=== PATIENT | male | born 1940 | race Caucasian/White ===

== ENCOUNTER 2021-06-15 14:48 | Emergency (ER) | payer MEDICARE, SELFPAY ==
--- NOTE | ~2021-06-15 | CT_ITS ---
EXAMINATION: CT brain wo con DATE: 06/15/2021 15:28 INDICATION: Headache. TECHNIQUE: Computed tomography (CT) of the head was performed without intravenous contrast. The mA wa s adjusted according to patient size. Iterative reconstruction technique was employed. The dose-lengt h product was 605.33 mGy-cm. COMPARISON: None FINDINGS: There is an old lacunar infarct in left caudate nucleus. There is an old infarct in left pa rietal lobe. There are scattered areas of low attenuation in the cerebral white matter, which is with in normal limits for the patient's age. There is no intracranial hemorrhage, acute infarction, or abn ormal intracranial mass lesion. The ventricles are normal in size. There are likely changes of ocular lens replacement surgeries. There is mild mucosal thickening in the paranasal sinuses. The mastoid a ir cells are normal. IMPRESSION: 1. 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 Reviewed, dictated and finalized at location A.
--- NOTE | ~2021-06-15 | XR_ITS ---
EXAMINATION: XR chest 2V DATE: 06/15/2021 15:15 INDICATION: Hypertension TECHNIQUE: PA and lateral views of the chest were obtained. COMPARISON: None FINDINGS: Mild patchy airspace opacities in the bilateral lower lung zones. A couple small calcified nodules in the mid right lung zone consistent with old granulomatous disease. No pleural effusion or pneumothor ax. The cardiomediastinal silhouette is normal. Median sternotomy wires and mediastinal surgical clip s are seen, likely from prior coronary artery bypass grafting. Cholecystectomy clips in right upper q uadrant. Moderate cervical and midthoracic spondylosis. IMPRESSION: 1. Mild opacities in bilateral lower lung zones which could represent mild pulmonary edema, atelectas is or pneumonia. Reviewed, dictated and finalized at location A. IMPRESSION: 1. Mild opacities in bilateral lower lung zones which could represent mild pulm onary edema, atelectasis or pneumonia.
--- NOTE | 2021-06-15 14:55 | ECG_ITS ---
Measurements Intervals [place] Rate: 74 P: 10 WA: 173 QRS: 61 QRSD: 123 T: 7 QT: 391 QTc: 436 Interpretive Statements SINUS RHYTHM WITH SINUS ARRHYTHMIA RIGHT BUNDLE BRANCH BLOCK MINIMAL Q WAVES- INFERIOR LEADS ABNORMAL ECG Electronically Signed On 06-15-2021 15:16:46 CDT by Varun Klein D.O.
[2021-06-15 14:56] VITALS: BP 154/82; PULSE 100; RESP 16; TEMP 36; O2SAT 98
[2021-06-15 15:12] LABS: Basophils Absolute Auto 0.1 K/mm3 (0.0-0.1); Basophils Percent Auto 0.7 % (0.2-1.2); Eosinophils Absolute Auto 0.2 K/mm3 (0-0.3); Eosinophils Percent Auto 1.6 % (0-4.4); Hematocrit 40.1 % (42.0-52.0); Hemoglobin 13.1 g/dL (14.0-18.0); Immature Granulocyte Absolute 0.05 K/mm3 (0.00-0.031); Immature Granulocyte Percent A 0.5 % (0-0.5); Lymphocytes Absolute Auto 3.65 K/mm3 (0.9-3.2); Lymphocytes Percent Auto 34.8 % (18.3-44.2); Mean Corpuscular HGB Conc 32.7 g/dl (32-36); Mean Corpuscular Hemoglobin 30.6 pg (26-34); Mean Corpuscular Volume 93.7 fl (80-100); Mean Platelet Volume 9.6 fl (7.4-10.4); Monocytes Absolute Auto 1.1 K/mm3 (0.1-0.6); Monocytes Percent Auto 10.6 % (2.6-8.5); Neutrophils Absolute Auto 5.4 K/mm3 (1.3-6.7); Neutrophils Percent Auto 51.8 % (45.5-73.1); Platelet Count Result 253 k/mm3 (150-375); Red Blood Count 4.28 M/mm3 (4.6-6.20); Red Cell Distribution Width 12.7 % (11.5-14.5); White Blood Count 10.5 K/mm3 (4.5-10.0)
[2021-06-15 15:22] LABS: INR 0.9; Prothrombin Time 12.3 Seconds (11.1-14.7)
[2021-06-15 15:23] LABS: Partial Thromboplastin Time 29.2 SECONDS (22.3-36.8)
[2021-06-15 15:24] LABS: Anion Gap 9 mmol/L (8-16); Blood Urea Nitrogen 26 mg/dL (9-20); Calcium 9.6 mg/dL (8.4-10.2); Carbon Dioxide 22 mmol/L (22-30); Chloride 106 mmol/L (98-107); Estimated CRCL calculation 43 ml/min; Estimated Glomerular Filt Rate 42; Glucose 240 mg/dL (65-110); Potassium 4.8 mmol/L (3.4-5.0); Sodium 137 mmol/L (137-145)
[2021-06-15 15:36] LABS: Troponin I < 0.012 ng/mL (0.000-0.034)
--- NOTE | 2021-06-15 16:29 | PC.NURSE ---
pt had this rn contact his at [phone] to have her come pick him up because he is tired of waiting. pt spoke with and decided to leave without having md evaluation.
== END 2021-06-15 16:29 | disposition left against medical advice (07) ==
PROVIDERS: Emergency Provider Emergency Medicine
DX: Z53.21 Procedure and treatment not carried out due to patient leaving prior to being seen by health care provider (principal)
CPT/HCPCS: 36415; 70450; 71046; 80048; 84484; 85025; 85610; 85730; 93005; 99199

== ENCOUNTER 2021-12-15 09:06 | Outpatient (CLI) | payer MEDICARE, SELFPAY ==
--- NOTE | 2021-12-15 09:20 | ECG_ITS ---
Measurements Intervals [place] Rate: 103 P: -12 MT: 148 QRS: 68 QRSD: 130 T: -5 QT: 364 QTc: 477 Interpretive Statements SINUS TACHYCARDIA POSSIBLE LEFT ATRIAL ENLARGEMENT RIGHT BUNDLE BRANCH BLOCK BASELINE ARTIFACT- V3 ABNORMAL ECG Electronically Signed On 12-15-2021 10:03:43 TONG CARRIER by Varun Klein D.O.
== END 2021-12-15 09:07 | disposition home or self-care (01) ==
PROVIDERS: PCP Internal Medicine; Visit Provider Internal Medicine
DX: R00.0 Tachycardia, unspecified (principal); I10 Essential (primary) hypertension; I45.10 Unspecified right bundle-branch block
CPT/HCPCS: 93005

== ENCOUNTER 2022-01-07 13:26 | Outpatient (CLI) | payer MEDICARE, SELFPAY ==
--- NOTE | 2022-01-07 13:39 | ECHO_ITS ---
Patient Info Name: Alec Funes Age: 81 years : 1940 Gender: Male Ht: 72 in Wt: 238 lbs BSA: 2.37 m2 HR: 110 bpm BP: 125 / 62 mmHg Heart Rhythm: Sinus Rhythm Technical Quality: Poor Exam Date: 01/07/2022 1:50 PM Exam Location: [facility] Patient Status: Outpatient Admit Date: 01/07/2022 Staff Ordering Physician: Doug Chappell MD Purchase Order Checker: Jackie Fletcher RDCS Attending Provider: Doug Chappell MD Exam Type: CA echo doppler color flow Study Info Indications I25.10 - Atherosclerotic heart disease of [place] coronary artery without angina pectoris Complete two-dimensional, color flow and Doppler transthoracic echocardiogram is performed. Reason for Poor Study: patient body habitus Summary 1. Complete two-dimensional, color flow and Doppler transthoracic echocardiogram is performed. 2. There is moderate concentric increased left ventricular wall thickness. 3. Left ventricular systolic function is normal, estimated at 50-55%. 4. There is mild aortic valve stenosis with a peak velocity of 162 cm/s, mean gradient of 6 mmHg, and aortic valve area of 1.5 cm2. 5. The mitral valve has thickened leaflets. 6. There is no mitral valve regurgitation. Left Ventricle Left ventricular chamber dimension is normal. Left ventricular systolic function is normal, estimated at 50-55%. There is moderate concentric increased left ventricular wall thickness. The left ventricular diastolic function is grade I diastolic dysfunction. Right Ventricle Right ventricular chamber dimension is normal. Left Atria Left atrial chamber dimension is moderately enlarged. Right Atria Right atrial chamber dimension is normal. Aortic Valve The aortic valve is trileaflet. There is moderate aortic valve sclerosis. There is mild aortic valve stenosis with a peak velocity of 162 cm/s, mean gradient of 6 mmHg, and aortic valve area of 1.5 cm2. Pulmonic Valve The pulmonic valve is not well visualized. Mitral Valve The mitral valve has thickened leaflets. There is no mitral valve regurgitation. The mitral valve annulus is mildly calcified. Tricuspid Valve The tricuspid valve leaflets are normal. Pericardium/Pleural The pericardium appears normal. Aorta The aortic root size at the sinus of Valsalva is normal. Left Ventricular Outflow Tract Name Value Normal LVOT 2D LVOT Diameter 2.0 cm LVOT Doppler LVOT Peak Gradient 2 mmHg LVOT Mean Gradient 1 mmHg LVOT VTI 11 cm LVOT VTI/AV VTI Ratio 0.4 LVOT Stroke Volume 37 ml LVOT CO 3.3 l/min LVOT CI 1.4 l/min/m2 Pulmonic Valve Name Value Normal RVOT Doppler RVOT Peak Gradient 1 mmHg
== END 2022-01-07 13:27 | disposition home or self-care (01) ==
LOC: ANHCARD 13:31
PROVIDERS: PCP Internal Medicine; Visit Provider Internal Medicine
DX: I25.10 Atherosclerotic heart disease of native coronary artery without angina pectoris (principal); R00.0 Tachycardia, unspecified; I50.20 Unspecified systolic (congestive) heart failure; I35.0 Nonrheumatic aortic (valve) stenosis
CPT/HCPCS: 93306

== ENCOUNTER 2023-02-21 10:40 | Outpatient (CLI) | payer MEDICARE, SELFPAY ==
--- NOTE | ~2023-02-21 | US_ITS ---
EXAMINATION: US carotid duplex BI DATE: 02/21/2023 11:44 INDICATION: Bilateral carotid artery stenosis presenting with dizziness. Cerebral atherosclerosis. TECHNIQUE: Grayscale, color Doppler, and pulsed Doppler images of the cervical carotid arteries were obtained. The degree of vessel stenosis is placed in one of the following categories: normal, <50%, 5 0-69%, >=70% but less than near-occlusion, near-occlusion, or total occlusion. Note that percent sten osis relative to normal distal artery lumen diameter is indirectly measured from velocity measurement s as described by Ajni, et al. Radiology 2003; 229:340-346. COMPARISON: None. FINDINGS: RIGHT: The right common carotid artery (CCA) peak systolic velocity (PSV) is 80 cm/s. The right internal car otid artery (ICA) PSV is 153 cm/s. The right ICA end-diastolic velocity (EDV) is 31 cm/s. The right I CA/CCA PSV ratio is 1.9. Grayscale and color Doppler images yield an estimate of 50-69% diameter redu ction from plaque in the ICA. The external carotid artery (ECA) PSV is 94 cm/s. There is antegrade fl ow in the right vertebral artery. LEFT: The left CCA PSV is 102 cm/s. The left ICA PSV is 111 cm/s. The left ICA EDV is 31 cm/s. The left ICA /CCA PSV ratio is 1.1. Grayscale and color Doppler images yield an estimate of <50% diameter reductio n from plaque in the ICA. The ECA PSV is 197 cm/s. There is antegrade flow in the left vertebral nicholas ry. IMPRESSION: 1. 50-69% stenosis in the right internal carotid artery. 2. <50% stenosis in the left internal carotid artery. Reviewed, dictated and finalized at location A.
== END 2023-02-21 10:41 | disposition home or self-care (01) ==
PROVIDERS: PCP Internal Medicine; Visit Provider Specialist
DX: I65.23 Occlusion and stenosis of bilateral carotid arteries (principal)
CPT/HCPCS: 93880

== ENCOUNTER 2023-06-27 08:04 | Outpatient (CLI) | payer MEDICARE, SELFPAY ==
--- NOTE | 2023-07-17 10:31 | WPDSLEEPSTUD ---
Sleep Study Date of Study: 06/27/23 Ordering Provider: Leonid Laurent APRN Interpreting Physician: Norma Hernandez DO Sleep Study Type: Split Polysomnogram Height: 1.8 m Weight: 101.605 kg Body Mass Index: 31.2 Neck Circumference (inches): 17.5 [place]: 7 Reason for Sleep Study Previously diagnosed sleep apnea with PAP use. BiPAP Titration 02/14/18 @ [facility], [place] - auto BiPAP IPAP max 20, min EPAP 15, PS 4 recommended. 256lbs. Sleep History The patient is an 83-year-old male with diabetes, chronic kidney disease, hypothyroidism, dementia, hypertension, restless legs syndrome, benign prostatic hyperplasia, hyperlipidemia, congestive heart failure, coronary artery disease, migraines and previously diagnosed sleep apnea had a sleep study ordered so the patient could requalify for PAP therapy. The patient denies awakening from sleep short of breath. He rarely awakens at night with heartburn, belching or. He frequently snores and is frequently loud enough others complain. He denies having trouble sleeping when he has a cold. He denies waking up gasping for air throughout the night. He occasionally has breathing problems at night observed by himself or others. He rarely sweats excessively at night. He occasionally has heart palpitations or irregular heartbeats during the night. He frequently falls asleep during the day but never while driving. He denies sleep paralysis and cataplexy. He rarely has trouble at school or work due to sleepiness. He frequently experiences vivid dreamlike scenes upon awakening or falling asleep. He denies feeling afraid of going to sleep. He rarely has nightmares. He occasionally remembers his dreams. He rarely has thoughts racing through his mind. He denies feeling sad, depressed or anxious. He rarely has muscular tension. He occasionally notices parts of his body jerk. He occasionally kicks during the night. He frequently has crawling and aching feelings in his legs but rarely experiences leg pain throughout the night. He denies grinding his teeth during sleep and denies awakening with morning jaw pain. He is occasionally bothered by pain during the day but never awakened by pain during the night. He frequently wakes up feeling stiff in the morning. He frequently wakes up with sore or achy muscles. He constantly wakes up with pain in the neck, spine and other joints. He goes to bed between 8-9 p.m. on both weekdays and weekends. It takes him 5 minutes to fall asleep. He wakes up 2-5 times throughout the night to urinate and is able to fall back asleep within 5 minutes. He wakes up between 5-6:30 a.m. on both weekdays and weekends. He typically gets 9-10 hours of sleep per night. He will stay in bed for 5-10 minutes after waking up in the morning. He currently lives with his , daughter and son-in-law. He denies consuming any caffeinated beverages within 2 hours of bedtime. He denies engaging in physical exercise before bedtime. He will watch television before falling asleep. He will take naps in the afternoon and are refreshing. He currently consumes 1 cup of caffeinated beverage per day. He used to use tobacco be a pipe 30 years ago. He denies alcohol and recreational drug use. [facility] Past Medical History Medical History Allergies Diabetes Dizziness Excessive daytime sleepiness Heart attack Heart problem High cholesterol Memory loss Pulmonary embolism Thyroid disorder Vision changes Weakness Surgical History Surgical History H/O heart bypass surgery History of left knee replacement Previous back surgery Family History Family History Father Carcinoma of colon Mother Leukemia Sibling Diabetes mellitus Kidney disease Heart disease Daughter
[2023-07-17 10:32] VITALS: BMI 31.2
== END 2023-06-28 06:14 | disposition home or self-care (01) ==
PROVIDERS: PCP Family Medicine; Visit Provider Nurse Practitioner Family
DX: G47.30 Sleep apnea, unspecified (principal); G47.33 Obstructive sleep apnea (adult) (pediatric); G25.81 Restless legs syndrome
CPT/HCPCS: 95811

== ENCOUNTER 2023-07-18 10:35 | Outpatient (CLI) | payer MEDICARE, SELFPAY ==
[2023-07-24 19:10] LABS: Cryoglobulin, QL Negative (Negative)
== END 2023-07-18 10:36 | disposition home or self-care (01) ==
LOC: ANHLAB 10:36
PROVIDERS: PCP Family Medicine; Visit Provider Internal Medicine Nephrology
DX: N18.32 Chronic kidney disease, stage 3b (principal); R76.0 Raised antibody titer
CPT/HCPCS: 36415; 82595

== ENCOUNTER 2023-12-07 14:18 | Outpatient (CLI) | payer MEDICARE, SELFPAY ==
[2023-12-07 15:04] LABS: Basophils Absolute Auto 0.1 K/mm3 (0.0-0.1); Basophils Percent Auto 0.8 % (0.2-1.2); Eosinophils Absolute Auto 0.2 K/mm3 (0-0.3); Eosinophils Percent Auto 1.5 % (0-4.4); Hematocrit 45.1 % (42.0-52.0); Hemoglobin 14.8 g/dL (14.0-18.0); Immature Granulocyte Absolute 0.05 K/mm3 (0.00-0.031); Immature Granulocyte Percent A 0.5 % (0-0.5); Lymphocytes Percent Auto 31.6 % (18.3-44.2); Mean Corpuscular HGB Conc 32.8 g/dl (32-36); Mean Corpuscular Hemoglobin 30.6 pg (26-34); Mean Corpuscular Volume 93.4 fl (80-100); Mean Platelet Volume 9.6 fl (7.4-10.4); Monocytes Absolute Auto 1.1 K/mm3 (0.1-0.6); Monocytes Percent Auto 10.9 % (2.6-8.5); Neutrophils Absolute Auto 5.6 K/mm3 (1.3-6.7); Neutrophils Percent Auto 54.7 % (45.5-73.1); Platelet Count Result 218 k/mm3 (150-375); Red Blood Count 4.83 M/mm3 (4.6-6.20); Red Cell Distribution Width 12.2 % (11.5-14.5); White Blood Count 10.1 K/mm3 (4.5-10.0)
[2023-12-07 15:08] LABS: Alanine Aminotransferase 30 U/L (6-50); Alkaline Phosphatase 132 U/L (38-126); Anion Gap 11 mmol/L (8-16); Aspartate Amino Transferase 42 U/L (17-59); Bilirubin,Total 0.7 mg/dL (0.2-1.3); Blood Urea Nitrogen 17 mg/dL (9-20); Calcium 9.6 mg/dL (8.4-10.2); Carbon Dioxide 23 mmol/L (22-30); Chloride 104 mmol/L (98-107); Cholesterol 163 mg/dL (0-200); Estimated Glomerular Filt Rate 58; Glucose 145 mg/dL (65-110); HDL Direct 40 mg/dL; Potassium 3.6 mmol/L (3.4-5.0); Sodium 138 mmol/L (137-145); Triglycerides 145 mg/dL (<150)
[2023-12-07 15:19] LABS: LDL Cholesterol Direct 91 mg/dL
[2023-12-07 18:08] LABS: Vitamin D 25 Hydroxy 51.6 ng/mL
== END 2023-12-07 14:19 | disposition home or self-care (01) ==
PROVIDERS: PCP Family Medicine; Visit Provider Nurse Practitioner Family
DX: E03.9 Hypothyroidism, unspecified (principal); E11.9 Type 2 diabetes mellitus without complications; E55.9 Vitamin D deficiency, unspecified; E66.9 Obesity, unspecified; E78.5 Hyperlipidemia, unspecified; F03.90 Unspecified dementia, unspecified severity, without behavioral disturbance, psychotic disturbance, mood disturbance, and anxiety; G43.709 Chronic migraine without aura, not intractable, without status migrainosus; G47.33 Obstructive sleep apnea (adult) (pediatric); I25.10 Atherosclerotic heart disease of native coronary artery without angina pectoris; I49.8 Other specified cardiac arrhythmias; I50.20 Unspecified systolic (congestive) heart failure; N18.9 Chronic kidney disease, unspecified; N40.0 Benign prostatic hyperplasia without lower urinary tract symptoms; R42 Dizziness and giddiness; Z86.73 Personal history of transient ischemic attack (TIA), and cerebral infarction without residual deficits
CPT/HCPCS: 36415; 80053; 80061; 82306; 84443; 85025

== ENCOUNTER 2024-01-02 07:34 | Outpatient (CLI) | payer MEDICARE, SELFPAY ==
[2024-01-02 07:59] LABS: Hematocrit 45.5 % (42.0-52.0); Hemoglobin 14.7 g/dL (14.0-18.0); Mean Corpuscular HGB Conc 32.3 g/dl (32-36); Mean Corpuscular Hemoglobin 30.6 pg (26-34); Mean Corpuscular Volume 94.8 fl (80-100); Mean Platelet Volume 9.2 fl (7.4-10.4); Platelet Count Result 227 k/mm3 (150-375); Red Cell Distribution Width 12.2 % (11.5-14.5); White Blood Count 9.7 K/mm3 (4.5-10.0)
[2024-01-02 08:09] LABS: Creatinine Urine 89.5 mg/dL; Total Protein Urine Random 14 mg/dL; Ur Ttl Prot Creatinine Ratio 0.16 mg/mg (0-0.20)
[2024-01-02 08:10] LABS: Anion Gap 7 mmol/L (8-16); Blood Urea Nitrogen 16 mg/dL (9-20); Calcium 9.1 mg/dL (8.4-10.2); Carbon Dioxide 23 mmol/L (22-30); Chloride 107 mmol/L (98-107); Estimated Glomerular Filt Rate > 60; Glucose 95 mg/dL (65-110); Phosphorus 3.3 mg/dL (2.5-4.5); Potassium 3.7 mmol/L (3.4-5.0); Sodium 137 mmol/L (137-145)
[2024-01-02 08:22] LABS: Parathyroid Intact 75.9 pg/mL (7.5-53.5)
== END 2024-01-02 07:35 | disposition home or self-care (01) ==
LOC: ANHLAB 07:37
PROVIDERS: PCP Family Medicine; Visit Provider Internal Medicine Nephrology
DX: N18.32 Chronic kidney disease, stage 3b (principal)
CPT/HCPCS: 36415; 80069; 82570; 83970; 84156; 85027

== ENCOUNTER 2024-05-06 00:30 | Day surgery (SDC) | payer MEDICARE, SELFPAY ==
[2024-05-03 16:22] VITALS: BMI 29.5
[2024-05-06] VITALS (21 sets, daily range): BP systolic 111–163; BP diastolic 58–83; PULSE 60–84; RESP 12–16; TEMP 36.1; O2SAT 94–100; BMI 29.0
[2024-05-06 07:30] LABS: Basophils Absolute Auto 0.1 K/mm3 (0.0-0.1); Basophils Percent Auto 0.9 % (0.2-1.2); Eosinophils Absolute Auto 0.2 K/mm3 (0-0.3); Eosinophils Percent Auto 1.9 % (0-4.4); Hematocrit 45.4 % (42.0-52.0); Hemoglobin 15.5 g/dL (14.0-18.0); Immature Granulocyte Absolute 0.07 K/mm3 (0.00-0.031); Immature Granulocyte Percent A 0.7 % (0-0.5); Lymphocytes Absolute Auto 2.82 K/mm3 (0.9-3.2); Lymphocytes Percent Auto 27.5 % (18.3-44.2); Mean Corpuscular HGB Conc 34.1 g/dl (32-36); Mean Corpuscular Hemoglobin 31.6 pg (26-34); Mean Corpuscular Volume 92.5 fl (80-100); Monocytes Percent Auto 9.9 % (2.6-8.5); Neutrophils Absolute Auto 6.1 K/mm3 (1.3-6.7); Neutrophils Percent Auto 59.1 % (45.5-73.1); Platelet Count Result 268 k/mm3 (150-375); Red Blood Count 4.91 M/mm3 (4.6-6.20); Red Cell Distribution Width 12.3 % (11.5-14.5); White Blood Count 10.3 K/mm3 (4.5-10.0)
[2024-05-06 07:40] LABS: Prothrombin Time 13.5 Seconds (11.1-14.7)
[2024-05-06 08:02] LABS: Anion Gap 7 mmol/L (4-12); Blood Urea Nitrogen 17 mg/dL (9-20); Calcium 9.1 mg/dL (8.4-10.2); Carbon Dioxide 26 mmol/L (22-30); Chloride 106 mmol/L (98-107); Estimated CRCL calculation 45 ml/min; Estimated Glomerular Filt Rate 58; Glucose 183 mg/dL (65-110); Potassium 3.9 mmol/L (3.4-5.0); Sodium 139 mmol/L (137-145)
[2024-05-06] MEDS: SODIUM CHLORIDE 0.9% IV 500 ML 100 ML IV CONT (08:25)
--- NOTE | 2024-05-06 08:33 | PM.IMHP ---
H&P: HPI History of Present Illness Date/Time: 05/06/24 08:33 Chief Complaint: Chest pain Narrative: this is an 83-year-old man with known coronary disease and previous surgical revascularization was admitted today as an outpatient for left heart catheterization to investigate symptoms of chest pain. I saw the patient in the office for routine follow-up in the end of March of 2024 which time he was reporting symptoms of exertional chest burning that were slowly getting worse over the course of the last 6 months to year. He did have symptoms like this last year that were evaluated with a nuclear stress test that was largely unremarkable. He also has a history of mild aortic valve stenosis. Because of his ongoing symptoms left heart catheterization was discussed and recommended at that time. The patient this morning appears to be a very poor historian in terms of describing symptoms. He states that between his appointment in the office and today he had a significant episode of symptoms with some chest pain dyspnea and significant weakness that went on for about 24-36 hours. For some reason he did not choose to come in for medical evaluation at that time. He also reports ongoing symptoms of some back pain when he rolls in certain positions in his bed. At the moment he is not reporting chest pain with exertion. His history of coronary disease dates back to the . In 1995 he presented with chest pain and was evaluated at [facility]. He underwent surgical revascularization receiving an SANDIE graft to the LAD and a diagonal and a radial artery graft to a 2nd diagonal and then to the obtuse marginal. He did very well following surgery he was living in [place] for a long time after this and recently within the last several years relocated back to this area. Review of Systems Constitutional: Constitutional: Reports lethargy and Reports weakness Eyes: Eyes: Reports no additional eye complaints ENT: Reports system reviewed and no additional complaints, except as documented Cardiovascular: Cardiovascular: Reports as per HPI Respiratory: Respiratory: Reports dyspnea on exertion Gastrointestinal: Gastrointestinal: Reports no additional gastrointestinal complaints Genitourinary: Genitourinary: Reports no additional male genitourinary complaints Musculoskeletal: Musculoskeletal: Reports back pain Integumentary/Breasts: Skin/Breast: Reports system reviewed and no additional complaints, except as docu Neurologic: Reports system reviewed and no additional complaints, except as documented [facility] Past Medical History Medical History Allergies Diabetes Dizziness Excessive daytime sleepiness Heart attack Heart problem High cholesterol Memory loss Pulmonary embolism Thyroid disorder Vision changes Weakness Surgical History Surgical History H/O heart bypass surgery History of left knee replacement Previous back surgery Family History Family History Father Carcinoma of colon Mother Leukemia Sibling Diabetes mellitus Kidney disease Heart disease Daughter Diabetes mellitus Son Cerebrovascular accident Social History Social History Smoking status: Never smoker Tobacco type: pipe Smokeless tobacco user: chewing tobacco Second hand tobacco smoke exposure: Yes Alcohol intake: never Alcohol use details: social Substance use: never Substance use type: does not use Do You Feel Safe in your Home?: Yes Lack of Transportation: No Lack of Food: Never True Current Housing: I Have Housing Concerned About Future Housing: No Difficulty Paying Gas/Electric Bills: No Difficulty Paying for Meds: No Currently Unemployed: No Education: Hig
--- NOTE | 2024-05-06 08:40 | WPDMODSED ---
Moderate Sedation Note-Pt Data Patient Data Diagnosis: coronary disease with previous surgical revascularization MARTIN atypical chest pain Present Complaint: intermittent chest pain Procedure to be performed/Plan: left heart catheterization with bypass graft angiography Allergies Allergy/AdvReac Type Severity Reaction Status Date / Time meperidine [From Demerol] AdvReac Unknown Unknown Verified 05/06/24 07:23 Home Medications Medication Instructions Recorded Confirmed Type multivitamin (Daily Multi-Vitamin 1 tablet PO DAILY 07/05/21 05/03/24 History tablet) flash glucose sensor (FreeStyle #1 ea 07/22/21 01/13/24 Rx Kian 14 Day Sensor kit) flash glucose sensor (FreeStyle #1 ea 09/14/21 01/13/24 Rx Kian 2 Sensor kit) aspirin 81 mg chewable tablet 81 mg PO DAILY 12/15/21 05/06/24 History semaglutide 1 mg/dose (2 mg/1.5 1 mg subcut WEEKLY 12/15/21 05/03/24 History mL) subcutaneous pen injector levothyroxine 50 mcg tablet 50 mcg PO DAILY #90 tabs 07/04/22 05/06/24 Rx midodrine 5 mg tablet 5 mg PO TID 90 days #270 tabs 07/05/22 05/03/24 Rx dapagliflozin propanediol 5 mg 5 mg PO DAILY 01/09/23 05/03/24 History tablet (Farxiga) insulin aspart U-100 100 unit/mL 10 sliding scale dose subcut BID 01/09/23 05/03/24 History (3 mL) subcutaneous pen (Novolog FlexPen U-100 Insulin aspart) fludrocortisone 0.1 mg tablet 0.1 mg PO DAILY 05/08/23 05/03/24 History clopidogrel 75 mg tablet 75 mg PO DAILY 05/03/24 05/06/24 History insulin glargine 100 unit/mL 20 unit subcut BID 05/03/24 05/03/24 History subcutaneous cartridge Current Medications: Active Medications Sodium Chloride (Normal Saline Iv) 500 mls @ 100 mls/hr IV CONT .Q5H SARAH Sedation/Anesthesia: No previous sedation/anesthesia problems (including family history). [facility] Past Medical History Medical History Allergies Diabetes Dizziness Excessive daytime sleepiness Heart attack Heart problem High cholesterol Memory loss Pulmonary embolism Thyroid disorder Vision changes Weakness Surgical History Surgical History H/O heart bypass surgery History of left knee replacement Previous back surgery Family History Family History Father Carcinoma of colon Mother Leukemia Sibling Diabetes mellitus Kidney disease Heart disease Daughter Diabetes mellitus Son Cerebrovascular accident Social History Social History Smoking status: Never smoker Tobacco type: pipe Smokeless tobacco user: chewing tobacco Second hand tobacco smoke exposure: Yes Alcohol intake: never Alcohol use details: social Substance use: never Substance use type: does not use Do You Feel Safe in your Home?: Yes Lack of Transportation: No Lack of Food: Never True Current Housing: I Have Housing Concerned About Future Housing: No Difficulty Paying Gas/Electric Bills: No Difficulty Paying for Meds: No Currently Unemployed: No Education: High School Diploma/GED Living arrangements: with family Occupation/Education: retired Gender identity (if verbalized by the patient): Male Sexual Orientation (if Verbalized by the Patient): Straight or Heterosexual Spiritual care concerns: No Mod Sed Physical Exam Physical Exam Pre Procedural Exam: Normal: Throat, Airway, Lungs, Heart Size, Heart Rate, Heart Rhythm, Neuro Exam and Extremities and Variation: Appearance ( elderly gentleman no distress) Hours since solid foods: 12 Hours since liquid intake: 12 Mallampati Classification: class II Internal Medicine - PN: Obj Da Vital Signs Vital Signs: Vital Signs - 24 hr 05/06/24 07:31 Temperature 36.1 C L Pulse Rate 72 Respiratory Rate 13 Blood Pressure 141/72 H Pulse
--- NOTE | 2024-05-06 09:37 | WPDCARDPROC ---
Cardiac Cath Procedure Note Date of procedure:: 05/06/24 Performing physician:: Remberto Mccray MD Indication:: intermittent atypical sounding chest pain coronary disease with previous surgical revascularization aortic stenosis, mild by echo Brief clinical history:: this is an 83-year-old man with coronary artery disease and surgical revascularization back in 1995. He received an SANDIE graft to the LAD and a radial artery graft to his OM. He presents now with episodes of chest pain both with and without exertion and MARTIN. For evaluation of the symptoms follow-up angiography has been scheduled for today. Procedure Procedure performed:: Coronary angiography non selective SANDIE graft angiography aortic root angiography Sedation/Medication given:: fentanyl 25 mg Versed 2 mg case start time 8:49 a.m. case end time 9:28 a.m. sedation provided by Paula Tomlin RN trained observer Access site:: right femoral artery Estimated blood loss:: 25 cc Procedure note:: patient was brought to the cardiac catheterization postabsorptive state where the right femoral triangle was prepared and draped in the usual fashion. Anesthesia was provided with 1% lidocaine infiltrated locally. Using the modified Seldinger technique the femoral artery was punctured and a 5 Cambodian vascular sheath was placed. After this I advanced a angled pigtail catheter into the aortic root and this catheter with the J wire would not successfully cross the aortic valve. As the patient had recent echocardiography I did not make further attempts to cross the patient's aortic valve. Following this a 5 Cambodian FL4 catheter was engaged into the left main coronary artery and left coronary angiography was performed in multiple projections. Following this a 5 Cambodian JR4 used to engage and inject right coronary artery as well as attempt to identify the radial artery graft. This catheter was also used to non selectively inject the GERMAN with the catheter in the left subclavian artery. I was unable despite several attempts to get this catheter or any catheter to the origin of the left internal mammary. The left subclavian artery is calcified but large in caliber. I tried the combinations of this catheter with J-wire, Buckley wire, the same wire with the SANDIE catheter and the same wires with the multipurpose catheter. Following this I placed the pigtail catheter back into the aortic root and performed a aortic root injection in the UZBEK projection to ensure there were no other aorta coronary grafts that were not visualized. The case was then terminated the patient was taken to the holding area for sheath removal and recovery. Findings:: Hemodynamics: Central aortic pressure is 158/70. The left ventricle was not entered during this procedure the left main coronary artery is calcified but patent without significant stenosis. The left anterior descending is a medium caliber artery which is calcified. It is 100% occluded after the origin of a small 1st diagonal branch. The vessel has the appearance of a chronic occlusion. The circumflex is a medium caliber artery giving rise to 3 marginal branches and a posterior branch. The circumflex is calcified and mildly diseased in the trunk. The 2nd and 3rd marginal branches have ostial lesions of about 80-90%. These are both small vessels. The right coronary artery is large caliber and dominant to the posterior circulation. The right coronary artery has complex eccentric calcified proximal stenosis. In the MATTHEWS projection this appears to be approximately 80% stenosis in the UZBEK projections it appears to be less significant. The left internal mammary was visualized as stated above non selectively with injection in the left subclavian. It is a large SANDIE which grafts into a small caliber somewhat diffusely diseased LAD. There are no lesions in the SANDIE. The LAD itself was suboptimally visualized because of the non selective na
== END 2024-05-06 16:25 | disposition home or self-care (01) ==
PROVIDERS: PCP Nurse Practitioner Family; Visit Provider Specialist
PROC: 4A023N7 Measurement of Cardiac Sampling and Pressure, Left Heart, Percutaneous Approach (ICD-10-PCS; CPT 93459; principal; 2024-05-06 08:30)
DX: I25.10 Atherosclerotic heart disease of native coronary artery without angina pectoris (principal); I25.810 Atherosclerosis of coronary artery bypass graft(s) without angina pectoris; R07.9 Chest pain, unspecified; I35.0 Nonrheumatic aortic (valve) stenosis; E78.00 Pure hypercholesterolemia, unspecified; I25.2 Old myocardial infarction; E11.9 Type 2 diabetes mellitus without complications; E07.9 Disorder of thyroid, unspecified; Z86.711 Personal history of pulmonary embolism; F17.220 Nicotine dependence, chewing tobacco, uncomplicated; Z79.82 Long term (current) use of aspirin; Z79.85 Long-term (current) use of injectable non-insulin antidiabetic drugs; Z79.84 Long term (current) use of oral hypoglycemic drugs; Z79.4 Long term (current) use of insulin; Z79.02 Long term (current) use of antithrombotics/antiplatelets
CPT/HCPCS: 36415; 80048; 85025; 85610; 93459; C1769; C1887; C1894; J0461; J1644; J2250; J2305; J3010; J7040

== ENCOUNTER 2024-07-15 08:45 | Outpatient (RCR) | payer MEDICARE, SELFPAY ==
[2024-07-02 15:45] VITALS: PULSE 84
[2024-07-03 09:57] LABS: Glucose Point of Care 129 mg/dl (65-105)
[2024-07-04 09:48] LABS: Glucose Point of Care 110 mg/dl (65-105)
[2024-07-04 09:48] LABS: Glucose Point of Care 93 mg/dl (65-105)
== END 2024-07-15 11:33 | disposition home or self-care (01) ==
LOC: ANHCPREHAB 08:45
PROVIDERS: PCP Nurse Practitioner Family; Visit Provider Specialist
DX: Z95.5 Presence of coronary angioplasty implant and graft (principal)
CPT/HCPCS: 93798

== ENCOUNTER 2024-07-26 11:59 | Outpatient (CLI) | payer MEDICARE, SELFPAY ==
[2024-07-26 12:33] LABS: Hematocrit 45.5 % (42.0-52.0); Hemoglobin 15.5 g/dL (14.0-18.0); Mean Corpuscular HGB Conc 34.1 g/dl (32-36); Mean Corpuscular Hemoglobin 31.8 pg (26-34); Mean Corpuscular Volume 93.4 fl (80-100); Mean Platelet Volume 9.8 fl (7.4-10.4); Platelet Count Result 227 k/mm3 (150-375); Red Blood Count 4.87 M/mm3 (4.6-6.20); Red Cell Distribution Width 12.1 % (11.5-14.5); White Blood Count 9.7 K/mm3 (4.5-10.0)
[2024-07-26 12:48] LABS: Albumin Level 4.2 g/dL (3.5-5.1); Anion Gap 8 mmol/L (4-12); Blood Urea Nitrogen 15 mg/dL (9-20); Calcium 9.2 mg/dL (8.4-10.2); Carbon Dioxide 28 mmol/L (22-30); Chloride 104 mmol/L (98-107); Estimated Glomerular Filt Rate 48; Glucose 127 mg/dL (65-110); Phosphorus 3.3 mg/dL (2.5-4.5); Sodium 140 mmol/L (137-145)
[2024-07-26 12:56] LABS: Parathyroid Intact 71.1 pg/mL (14.5-75.2)
[2024-07-26 13:09] LABS: Creatinine Urine 200.4 mg/dL; Total Protein Urine Random 17 mg/dL; Ur Ttl Prot Creatinine Ratio 0.08 mg/mg (0-0.20)
[2024-07-26 13:24] LABS: Vitamin D 25 Hydroxy 64.1 ng/mL
== END 2024-07-26 12:00 | disposition home or self-care (01) ==
LOC: ANHLAB 12:02
PROVIDERS: PCP Nurse Practitioner Family; Visit Provider Internal Medicine Nephrology
DX: E11.22 Type 2 diabetes mellitus with diabetic chronic kidney disease (principal); N18.32 Chronic kidney disease, stage 3b; R76.0 Raised antibody titer; E21.1 Secondary hyperparathyroidism, not elsewhere classified; Z79.4 Long term (current) use of insulin
CPT/HCPCS: 36415; 80069; 82306; 82570; 83970; 84156; 85027

== ENCOUNTER 2024-09-18 14:19 | Outpatient (CLI) | payer MEDICARE, SELFPAY ==
--- NOTE | ~2024-09-18 | XR_ITS ---
Lumbosacral Spine: AP and lateral views Clinical History: Pain Findings: The normal lordotic curve is maintained. The vertebral bodies and posterior elements are i ntact. There is moderate to advanced degenerative disc narrowing at L4-L5 and L5-S1. There is advance d facet arthropathy at L4-L5 and L5-S1. There is minimal degenerative change of the upper lumbar spin e. The sacroiliac joints are normally outlined. Impression: Moderate to advanced degenerative spondylosis, especially the lower lumbar spine, as detailed above. Reviewed, dictated and finalized at location M. MACHINE OPERATOR Impression: Moderate to advanced degenerative spondylosis, especially the lower lumbar spin e, as detailed above.
[2024-09-18 16:43] LABS: Creatinine Urine 88.6 mg/dL
[2024-09-18 16:47] LABS: MALB Creatinine Ratio 17.6 mg/g (0-30); Microalbumin Urine Random 15.6 mg/L (0-16.7)
== END 2024-09-18 14:20 | disposition home or self-care (01) ==
PROVIDERS: PCP Nurse Practitioner Family; Visit Provider Nurse Practitioner Family
DX: M47.896 Other spondylosis, lumbar region (principal); M47.897 Other spondylosis, lumbosacral region; E11.9 Type 2 diabetes mellitus without complications
CPT/HCPCS: 72100; 82043

== ENCOUNTER 2025-03-12 13:49 | Outpatient (CLI) | payer MEDICARE, SELFPAY ==
--- OUTSIDE RECORDS SUMMARY | 2025-03-12 14:00 | XMS_ITS | Clinical Summary ---
Author Organization [facility] Address [address] [place] [id number] Phone Care Team Providers Care Dredge Master Name Role Phone Doug Chappell MD Primary Care Provider [phone] Allergies Active Allergy Reactions Criticality Noted Date Comments Meperidine Other (see comments) Low 10/30/2020 unknown Medications aspirin (ST LE) 81 MG EC tablet Take 81 mg by mouth daily Active atorvastatin (LIPITOR) 40 MG tablet Take 40 mg by mouth daily Active cholecalciferol (VITAMIN D-3) 25 MCG (1000 UT) tablet Vitamin D3 once daily 1,000mg Active clopidogrel (PLAVIX) 75 MG tablet 2 Active glucose blood (True Metrix Blood Glucose Test) test strip True Metrix Glucose Test Strip Active Insulin Aspart 100 UNIT/ML solution Inject up to 120 units/day via insulin pump 2 Active Insulin Disposable Pump (Omnipod DASH Pods, Gen 4,) misc 2 Active levothyroxine (SYNTHROID) 50 MCG tablet 2 Active midodrine (PROAMATINE) 5 MG tablet 2 Active Multiple Vitamin (multivitamin) capsule multivitamin once daily Active Semaglutide,0.2 5 or 0.5MG/DOS, (Ozempic, 0.25 or 0.5 MG/DOSE,) 2 MG/1.5ML solution pen-injector Inject 1 mg under the skin once a week 2 Active Active Problems Problem Noted Date Diagnosed Date Chronic kidney disease stage 3B 03/07/2022 COVID-19 03/07/2022 Orthostatic hypotension 03/07/2022 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 08/2022 Coronary atherosclerosis 10/14/2021 History of coronary artery bypass grafting 10/14 Atrial fibrillation 10/30/2020 Immunizations Immunization Administration Dates Next Due Influenza TIV (IM) 09/07/2022(Deferred: Patient Refused) Pneumococcal Conjugate 07/07/2014 Pneumococcal Conjugate 13-Valent 07/07/2015 Social History Tobacco Use Types Packs/Day Years Used Date Smoking Tobacco: Former Pipe Smokeless Tobacco: Current Comments:occasionally chews Alcohol Use Standard Drinks/Week Comments Not Currently 0 (1 standard drink = 0.6 oz pur e alcohol) Sex and Gender Information Value Date Recorded Sex Assigned at Not on file Legal Sex Male 8:31 AM MDT Gender Identity Not on file Sexual Orientation Not on file Last Filed Vital Signs Vital Sign Reading Time Taken Comments Blood Pressure 106/70 09/07/2022 10:19 AM CDT Pulse 72 09/07/2022 10:19 AM CDT Temperature 34.6 C (94.3 F) 09/07/2022 10:19 AM CDT Respiratory Rate - - Oxygen Saturation - - Inhaled Oxygen Concentration - - Weight 102 kg (225 lb) 09/07/2022 10:19 AM CDT Height 182.9 cm (6') 09/07/2022 10:19 AM CDT Body Mass Index 30.52 09/07/2022 10:19 AM CDT Plan of Treatment Health Maintenance Due Date Last Done Comments Diabetic Foot Exam 1950 Ophthalmology Exam 1950 Pneumococcal PPSV23/PCV13 65 + Years / High and Highest Risk (2 of 4 - PPSV23) 09/01/2015 07/07/2015 Influenza Vaccine (Season Ended) 2025 Insurance MEDICARE ADVANTAGE Care Teams Dredge Master Relationship Specialty Start Date End Date Doug Chappell MD [address] [place] [id number] PCP - General Family Medicine 02/07/22
--- OUTSIDE RECORDS SUMMARY | 2025-03-12 14:00 | XMS_ITS | Referral Summary ---
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 Role Phone Eduard Loya MD Unavailable Rafael Bazan MD Primary Care Provider [phone] Encounters Date Type Department Care Team Description 01/01/2025 Telephone [facility] Medical Group Diabetes and Endocrinology [address] [place] [address] Cherrie Hernandez NP Med Management (Ozempic and Farxiga) from Last 3 Months Allergies No known active allergies Medications clopidogreL (PLAVIX) 75 mg tablet Take 1 tablet (75 mg total) by mouth daily Active aspirin 81 mg enteric coated tablet Take 1 tablet (81 mg total) by mouth daily Active cholecalciferol (VITAMIN D-3) 25 mcg (1,000 unit) tablet Vitamin D3 once daily 1,000mg Active meclizine (ANTIVERT) 25 mg tablet Take 1 tablet (25 mg total) by mouth daily Active dapagliflozin propanediol (FARXIGA) 10 mg tabletIndicatio ns:type 2 diabetes mellitus Take 1 tablet (10 mg total) by mouth daily 90 tablet 3 3 Active semaglutide (Ozempic) 1 mg/dose (4 mg/3 mL) pen injector injection Inject 1 mg under the skin every 7 days Pt assistance Lot [id number] Exp 06/05/2026 X 4 pens 4 Active Additional Information Patient taking differently:1 mg subcutaneous Every 7 days, Pt assistance MONDAYSLot [id number] 06/05/2026X 4 pens, Reported on 12/04/2024 pen needle, diabetic (Pen Needle) 31 gauge x 5/16 needleIndicatio ns:Type 2 diabetes mellitus with hyperglycemia, with long-term current use of insulin ([facility]) Use to inject insulin 4 times daily as directed 400 each 3 4 Active metoprolol XL (TOPROL-XL) 25 mg extended release tablet Take 1 tablet (25 mg total) by mouth daily 90 tablet 3 4 Active levothyroxine (SYNTHROID) 50 mcg tabletIndicatio ns:Hypothyroidi sm, unspecified type TAKE 1 TABLET IN SCHOOL BUSINESS ADMINISTRATOR BEFORE BREAKFAST 90 tablet 3 4 Active NovoLOG 100 unit/mL (3 mL) pen for injectionIndica tions:Type 2 diabetes mellitus with hyperglycemia, with long-term current use of insulin ([facility]) Novolog 10 units before breakfast & dinner. For blood sugars over 200: take 12 units. For blood sugars over 300: take 14 units 30 mL 4 Active fludrocortisone 0.1 mg tablet TAKE 1 TABLET EVERY DAY 90 tablet 2 4 Active Ozempic 1 mg/dose (2 mg/1.5 mL) pen injector injection Inject 1 mg under the skin once a week 4 Active traMADoL (ULTRAM) 50 mg tablet 5 Active insulin glargine 100 unit/mL (3 mL) pen for injectionIndica tions:Type 2 diabetes mellitus with hyperglycemia, with long-term current use of insulin ([facility]) Inject 20 Units under the skin every 12 (twelve) hours 45 mL 2 5 12/04/19 26 Active atorvastatin (LIPITOR) 40 mg tabletIndicatio ns:Type 2 diabetes mellitus with hyperglycemia, with long-term current use of insulin ([facility]) TAKE 1 TABLET EVERY DAY 90 tablet 3 5 Active NovoLOG 100 unit/mL (3 mL) pen for injection Novolog 10 units before breakfast & dinner. For blood sugars over 200: take 12 units. For blood sugars over 300: take 14 units 5 Active Ozempic 1 mg/dose (4 mg/3 mL) pen injector injection Inject 1 mg under the skin once a week 5 Active Active Problems Problem Noted Date Diagnosed Date Status post insertion of drug eluting coronary a rtery stent 06/18/2024 Type 2 diabetes mellitus wit h stage 3a chronic kidney disease, with long-term current use of insulin 03/05/2024 Assessment & Plan (12/04/2024 1:20 PM HOSPICE/HOME HEALTH AIDE): Chronic problem. Managed by Dr Loya; seen every 6 mos. Currently on Farxiga 10mg daily. Nephropathy: On GINNY-I / ARB s : No. Last MA: 03/05/24 (18). Last creat/GFR: 06/10/24 GFR=55, CR=1.29. Assessment & Plan (07/26/2024 10:29 AM CDT): Chronic problem. Managed by Dr Loya; seen every 6 mos. Currently on Farxiga 10mg daily. Nephropathy: On GINNY-I / ARB s : No. Last MA: 03/05/24 (18). Last creat/GFR: 06/10/24 GFR=55, CR=1.29. Assessment & Plan (03/05/2024 1:30 PM CDT): Chronic problem. Managed by Dr Loya; seen every 6 mos. Last creat/GFR: 01/17/23 GFR=49, CR=1.41. Currently on Farxiga 10mg daily. Bilateral carotid artery stenosis 02/09/2023 Hypothyroidism 01/17/2023 Assessment & Plan (12/04/2024 1:18 PM HOSPICE/HOME HEALTH AIDE): Chronic problem, currently taking levothyroxine 50mcg daily. Clinically & biochemically euthyroid. TFTs checked 03/05/24 WNL. Assessment & Plan (07/26/2024 10:29 AM CDT): Chronic problem, currently taking levothyroxine 50mcg daily. Clinically & biochemically euthyroid. TFTs checked 03/05/24 WNL. Assessment & Plan (03/05/2024 1:28 PM CDT): Chronic problem, currently taking levothyroxine 50mcg daily. Clinically & biochemically euthyroid. TFTs checked 01/2023 WNL. Will update TFTs today. Verified that he uses mychart. Aware to check results/results letter in mychart. Will contact by phone if needed. Assessment & Plan (11/23/2023 3:33 PM HOSPICE/HOME HEALTH AIDE): Chronic problem, currently taking levothyroxine 50mcg daily. Clinically & biochemically euthyroid. TFTs checked 01/2023 WNL. Will drawn at next appt. No changes at this time. Assessment & Plan (05/02/2023 1:10 PM CDT): Chronic problem, currently taking levothyroxine 50mcg daily. Clinically & biochemically euthyroid. TFTs checked 01/2023 WNL. No changes at this time. Assessment & Plan (01/17/2023 1:56 PM CDT): Chronic problem, currently taking levothyroxine 50mcg daily. TFTs ordered today. Verified that he uses mychart. Aware to check results/results letter in [employer]. Will contact by phone if needed. Class 1 obesity due to exces s calories with serious comorbidity and body mass index (BMI) of 30.0 to 30.9 in adult 01/17/2023 Assessment & Plan (01/17/2023 1:56 PM CDT): Chronic problem. Discussed healthy diet and importance of regular physical activity (20- 30min/day, 150min/wk). 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 08/2022 Assessment & Plan (12/04/2024 1:18 PM HOSPICE/HOME HEALTH AIDE): Chronic problem, not controlled on current Atorvastatin 40mg. Last lipid panel: 08/03/23 LDL=93, NX=867. Managed by branch coordinator Dr Mccray. Assessment & Plan (07/26/2024 10:29 AM CDT): Chronic problem, not controlled on current Atorvastatin 40mg. Last lipid panel: 08/03/23 LDL=93, RP=052. Managed by branch coordinator Dr Mccray. Assessment & Plan (03/05/2024 1:28 PM CDT): Chronic problem, not controlled on current Atorvastatin 40mg. Last lipid panel: 08/03/23 LDL=93, JM=506. Managed by branch coordinator Dr Mccray. Assessment & Plan (11/23/2023 3:35 PM HOSPICE/HOME HEALTH AIDE): Chronic problem, not controlled on current Atorvastatin 40mg. Last lipid panel: 08/03/23 LDL=93, FK=667. Managed by branch coordinator Dr Mccray. Assessment & Plan (08/03/2023 4:11 PM CDT): Chronic, well controlled Update lipid profile Continue statin therapy Assessment & Plan (05/02/2023 1:08 PM CDT): Chronic problem, not controlled on current Atorvastatin 40mg. Last lipid panel: 06/02/22 LBI=246, ND=468. Managed by branch coordinator Dr Mccray. Assessment & Plan (01/17/2023 1:53 PM CDT): Chronic problem, not controlled on current Atorvastatin 40mg. Last lipid panel: 06/02/22 GPC=940, IB=614. Managed by branch coordinator Dr Mccray. Assessment & Plan (10/06/2022 5:14 PM HOSPICE/HOME HEALTH AIDE): Chronic, well controlled Low fat Low cholesterol diet Exercise Continue statin therapy Assessment & Plan (06/02/2022 12:55 PM CDT): Chronic problem, not at goal. Restart atorvastatin. Rx sent. Coronary artery disease invo lving nome coronary artery of nome heart without angina pectoris 10/14/2021 Hx of CABG 10/14/2021 AMRTIN (dyspnea on exertion) 10/30/2020 New onset atrial fibrillation 10/30/2020 Bradycardia with 31-40 beats per minute 10/30/20 20 Altered mental status 10/30/2020 Unsteady gait 10/30/2020 Chronic kidney disease (CKD) stage G3a/A2, moderately decreased glomerular filtration rate (GFR) between 45-59 mL/min/1.73 square meter and albuminuria creatinine ratio between 30-299 mg/g 10/30/2020 COVID-19 Acute respiratory failure with hypoxia KYLE (acute kidney injury) Acute metabolic encephalopathy Type 2 diabetes mellitus wit h hyperglycemia, with long-term current use of insulin Assessment & Plan (12/04/2024 1:19 PM HOSPICE/HOME HEALTH AIDE): Chronic problem, near goal given age. A1c has improved from 7.9% 07/26/24 to now 7.6% Current medications: Farxiga 10mg daily (PAP) Ozempic 1 mg weekly (PAP) Lantus 20 units twice daily Novolog 10 units before breakfast & dinner For blood sugars over 200: take 12 units For blood sugars over 300: take 14 units UTD on labs. UTD DM eye exam 11/28/23 Discussed the need to strive for regular exercise (30min most days) and diet (get at least 4-5 servings of fruit and veggies daily, avoid processed foods, increase lean protein intake and decrease carb portions as well as fruit juices, regular soda & desserts). Watch carbs and simple sugars. Check blood sugars: Freestyle kian 2. Check the feet daily for skin breakdown and infection. Assessment & Plan (07/26/2024 11:26 AM CDT): Chronic problem, near goal given age. A1c has risen from 7.8% 03/05/24 to now 7.9% [place] not accurate. Will call [employer] to get new reader sent out. Current medications: Farxiga 10mg daily (PAP) Ozempic 1 mg weekly (PAP) Lantus 20 units twice daily Novolog 10 units before breakfast & dinner For blood sugars over 200: take 12 units For blood sugars over 300: take 14 units UTD on labs. UTD DM eye exam 11/28/23 Discussed the need to strive for regular exercise (30min most days) and diet (get at least 4-5 servings of fruit and veggies daily, avoid processed foods, increase lean protein intake and decrease carb portions as well as fruit juices, regular soda & desserts). Watch carbs and simple sugars. Check blood sugars: Freestyle kian 2. Check the feet daily for skin breakdown and infection. Assessment & Plan (03/05/2024 2:06 PM CDT): Chronic problem, not at goal. A1c has improved from 9.0% 11/23/23 to now 7.8%. having lows overnoc. Will decrease evening dose of lantus to 15 units& increase morning lantus to 22 units. Current medications: Farxiga 10mg daily (PAP) Ozempic 1 mg weekly (PAP) Lantus 22 units every morning & 15 units every evening. Novolog 10 units before breakfast & dinner For blood sugars over 200: take 12 units For blood sugars over 300: take 14 units Will update labs today . Verified that he uses [employer]. Aware to check results/results letter in [employer]. Will contact by phone if needed. UTD DM eye exam 11/28/23 Discussed the need to strive for regular exercise (30min most days) and diet (get at least 4-5 servings of fruit and veggies daily, avoid processed foods, increase lean protein intake and decrease carb portions as well as fruit juices, regular soda & desserts). Watch carbs and simple sugars. Check blood sugars: Freestyle kian. Check the feet daily for skin breakdown and infection. Assessment & Plan (11/23/2023 3:31 PM HOSPICE/HOME HEALTH AIDE): Chronic problem, not at goal. A1c has risen from 8.5% 07/2023 to now 9.0% Has had worsening intake (snacks, candies) during holidays. Sedentary lifestyle. Stressed need for lifestyle changes. If unable to decrease BS/A1c at next visit--will need to adjust medications. PAP forms given to update. Aware to bring back in so we can get them completed & sent in. Current medications: Farxiga 10mg daily (PAP) Ozempic 1 mg weekly (PAP) Lantus 20 units every 12 hours Novolog 8 units before breakfast & dinner For blood sugars over 200: take 10 units For blood sugars over 300: take 12 units To scan Kian more often. Missing evening readings. DM eye exam by Dr Bazan at [facility] summer 2022. 2nd request letter sent to get copy of results. Discussed the need to strive for regular exercise (30min most days) and diet (get at least 4-5 servings of fruit and veggies daily, avoid processed foods, increase lean protein intake and decrease carb portions as well as fruit juices, regular soda & desserts). Watch carbs and simple sugars. Check the feet daily for skin breakdown and infection. Assessment & Plan (08/03/2023 4:08 PM CDT): Hba1c was Lab Results Component Value Date HGBA1C 8.5 08/03/2023 today, indicating acceptable DM control Goal Hba1c and blood glucose explained Diet and exercise were advised Prevention and treatment of hyypoglcyemia were discussed with the patient Blood glucose monitoring : continue CGM with FSL 2 Adjustment to medications: Because of cost mostly because patient does not like the pump, will switch back to a multiple daily injection. Continue pump at current settings When you finish your current pump pod, stop the pump and start taking insulin injections Start with Lantus, 20 units every 12 hour Take Humalog, 8 units before breakfast and dinner For sugars over 200, take 10 units For sugars over 300, take 12 units Continue with Farxiga and Ozempic Assessment & Plan (05/02/2023 1:53 PM CDT): Chronic problem, at goal. Current medications: Farxiga 10mg daily Ozempic 1 mg weekly Novolog via CoT[employer] Dash BR 1.6 CR 5 CF 25 T 120 >150 AIT 4 hrs Discussed moving from insulin pump to insulin injections. Mrs Funes will talk to [employer] to see if any patient assistance available. Will also ask pharmacist what approximate costs will be. To scan Kian more often. Missing evening readings. DM eye exam by Dr Bazan at [facility] summer 2021. 2nd request letter sent to get copy of results. Discussed the need to strive for regular exercise (30min most days) and diet (get at least 4-5 servings of fruit and veggies daily, avoid processed foods, increase lean protein intake and decrease carb portions as well as fruit juices, regular soda & desserts). Watch carbs and simple sugars. Check the feet daily for skin breakdown and infection. Assessment & Plan (01/17/2023 2:12 PM CDT): Chronic problem, at goal. Set up new Omnipod Dash pump. Will start new pod on Monday. Current medications: Farxiga 10mg daily Ozempic 1 mg weekly Novolog via Omnipod BR 1.6 CR 5 CF 25 T 120 >150 AIT 4 hrs To scan Kian more often. Missing evening readings. DM eye exam by Dr Bazan at [facility] summer 2021. Letter sent to get copy of results. Discussed the need to strive for regular exercise (30min most days) and diet (get at least 4-5 servings of fruit and veggies daily, avoid processed foods, increase lean protein intake and decrease carb portions as well as fruit juices, regular soda & desserts). Watch carbs and simple sugars. Check the feet daily for skin breakdown and infection. Assessment & Plan (10/06/2022 5:14 PM HOSPICE/HOME HEALTH AIDE): Hba1c was Lab Results Component Value Date HGBA1C 7.0 10/06/2022 today, indicating adequate DM control Goal Hba1c and blood glucose explained Diet and exercise were advised Prevention and treatment of hyypoglcyemia were discussed with the patient Blood glucose monitoring : Continue CGM with freestyle Kian Adjustment to medications: Continue OmniPod at current settings Continue Farxiga and Ozempic Assessment & Plan (06/02/2022 12:58 PM CDT): Chronic problem, overall in excellent range based on CGM download w/o hypoglycemia. No medication changes today. He prefers in the future to stop Omnipod and resume injections, which is reasonable as that's basically how he's using the pump (single basal rate, set food bolus amounts).Will let us know when he's planning to stop as will need to change his patient assistance forms to basal and bolus insulin. Update MA/Cr. Assessment & Plan (01/13/2022 3:31 PM HOSPICE/HOME HEALTH AIDE): Chronic problem, significantly improved since last visit. He started on Omnipod pump today so will have him f/u in next couple weeks to reevaluate. Daughter will be helping him. We reviewed in detail what constitutes SML meals based on his diet. They just had labs with PCP and will bring copies to next visit. Their main concern today is cost of medications. Unsure if they'll be able to continue Farxiga and Ozempic. They are working on PAP forms for Farxiga and directed them to forms for Ozempic as well as they previously received PAP for this in the past. Samples given today, let us know if any issues. Assessment & Plan (11/18/2021 1:57 PM HOSPICE/HOME HEALTH AIDE): Hba1c was Lab Results Component Value Date HGBA1C 8.3 11/18/2021 today, indicating suboptimal DM control Blood glucose level goal : 120-160, main goal being avoiding hypoglycemia : Target Hba1c : 7-8 % BG monitoring : continue CGM with FSL . I advised to the patient his to dropped the reader next week to download and look at the data. Prevention and treatment of hyypoglcyemia discussed. Insulin regimen adjustments: Keep checking your sugars with Freestyle Kian Take Toujeo, 80 units at bedtime Take Novolog, 10 units with units before meals. For sugars over 180, take 11 units For sugars over 220, take 12 units For sugars over 260, take 13 units For sugars over 300, take 14 units Stay on Ozempic 1 mg weekly Your target sugars are in the 120-160 range. Keep checking your sugars with Freestyle Kian Take Toujeo, 80 units at bedtime Take Novolog, 10 units with units before meals. For sugars over 180, take 11 units For sugars over 220, take 12 units For sugars over 260, take 13 units For sugars over 300, take 14 units Stay on Ozempic 1 mg weekly I think the patient might benefit from a insulin pump, which actually could be cheaper for him. Will check on a OmniPod or T slim pump. The patient also would benefit from an SGLT-2 inhibitor e.g. Farxiga or Jardiance, given his history of CAD and CKD. I have requested GFR today and will start Farxiga as indicated. Social History Tobacco Use Types Packs/Day Years Used Date Smoking Tobacco: Never Smokeless Tobacco: Current Chew Alcohol Use Standard Drinks/Week Comments Not Currently 0 (1 standard drink = 0.6 oz pur e alcohol) AUDIT-C Answer Date Recorded Q1: How often do you have a drink containing alc ohol? Monthly or less 06/10/2024 Q2: How many drinks containi ng alcohol do you have on a typical day when you are drinking? 1 or 2 06/10/2024 Q3: How often do you have si x or more drinks on one occasion? Never 06/10/2024 PHQ-2 Answer Date Recorded PHQ-2 Total Score (If total score is 3 or more points, staff should administer the PHQ-9) 0 10/06/2022 Personal Safety Answer Date Recorded Have you ever been in or are you currently in a harmful physical or emotional relationship or is someone making you feel afraid or unsafe? Denies 06/10/2024 Sex and Gender Information Value Date Recorded Sex Assigned at Not on file Legal Sex Male 6:50 PM HOSPICE/HOME HEALTH AIDE Gender Identity Male 03/19/2024 11:10 AM CDT Sexual Orientation Straight 03/19/2024 11 :10 AM CDT Last Filed Vital Signs Vital Sign Reading Time Taken Comments Blood Pressure 120/64 12/04/2024 12:58 PM HOSPICE/HOME HEALTH AIDE Pulse 75 12/04/2024 12:58 PM HOSPICE/HOME HEALTH AIDE Temperature 36.7 C (98 F) 11/02/2020 11:17 AM HOSPICE/HOME HEALTH AIDE Respiratory Rate 14 12/04/2024 12:58 PM HOSPICE/HOME HEALTH AIDE Oxygen Saturation 95% 10/07/2024 1:59 PM HOSPICE/HOME HEALTH AIDE Inhaled Oxygen Concentration - - Weight 96.6 kg (213 lb) 12/04/2024 12:58 PM HOSPICE/HOME HEALTH AIDE Height 182.9 cm (6' 0.01 ) 12/04/2024 12:[address] Body Mass Index 28.88 12/04/2024 12:58 PM HOSPICE/HOME HEALTH AIDE Plan of Treatment Not on file Medical Devices Implanted Type Area Bomb [employer] Officer Device Identifier Shelf Expiration Date Model / Serial / Lot [employer] Roopa Synergy Xd 4mm 48mm System Coronary Stent Everolimus [id number] - S1 - [id number] Implanted:Qty: 1 on 06/10/2024 by Wesley Mosquera MD at [facility] Stent Right: Coronary Artery [employer] Roopa 04/30/2025 [id number] / 1 / [id number] [employer] Roopa Stent Drug Eluting S Megatron Us Mr [id number] - S1 - [id number] Implanted:Qty: 1 on 06/10/2024 by Wesley Mosquera MD at [facility] Stent Right: Coronary Artery [employer] Roopa 05/07/2025 [id number] / 1 / [id number] Procedures Procedure Name Priority Date/Time Associated Diagnosis Comments POCT HEMOGLOBIN A1C Routine 12/04/2024 1 :07 PM HOSPICE/HOME HEALTH AIDE Type 2 diabetes mellitus with hyperglycemia, with long-term current use of insulin (HCC) DIABETES EYE EXAM Routine 09/03/2024 8:01 AM CDT EGFR STAT 06/10/2024 12:25 PM CDT Coronary artery disease involving nome coronary artery of nome heart without angina pectoris ALBUMIN CREATININE RATIO, URINE Routine 03/05/2024 2:34 PM CDT Type 2 diabetes mellitus with hyperglycemia, with long-term current use of insulin (HCC) LIPID PANEL Routine 08/03/2023 3:33 PM CDT 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 (HCC) from Last 3 Months or Most Recently Relevant to Health Maintenance Results * (ABNORMAL) POCT hemoglobin A1c (12/04/2024 1:07 PM HOSPICE/HOME HEALTH AIDE) Hemoglobin A1C, POC 7.6 4.0 - 5.6 % Blood 12/04/2024 1:07 PM HOSPICE/HOME HEALTH AIDE Cherrie Hernandez NP POINT OF CARE TEST ORDERA BLES Final Result * (ABNORMAL) DIABETES EYE EXAM (09/03/2024 8:01 AM CDT) Historical Provider HEALTH MAINTENANCE Final Result * (ABNORMAL) eGFR (06/10/2024 12:25 PM CDT) eGFR 55(L) >=60 mL/min/1. 73 m2 Comment: Interpretive Data Reference Interval Normal >/= 90 mL/min/1.73m2 Mildly decreased* 60 - 89 mL/min/1.73m2 Mildly to moderately decreased 45 - 59 mL/min/1.73m2 Moderately to severely decreased 30 - 44 mL/min/1.73m2 Severely decreased 15 - 29 mL/min/1.73m2 Kidney Failure < 15 mL/min/1.73m2 *Relative to young adult level Estimated glomerular filtration rate is determined by the 2020 CKD-EPI equation recommended by the National Kidney Foundation (A Unifying Approach to GFR Estimation: Recommendations of the NKF-ASK Task Force on Reassessing the Inclusion of Race in Diagnosing Kidney Disease, JASN 2020). The CKD-EPI equation should not be used for patients with unstable renal function and has not been validated in children and those over 70. Current interpretive data was last reviewed 2021. Blood 06/10/2024 12:2 5 PM CDT 06/10/2024 12:35 PM CDT us Wesley Mosquera MD LAB BLOOD ORDERABLES Final Resul t [facility] [address] [place] [address] * Albumin Creatinine Ratio, Urine (03/05/2024 2:34 PM CDT) Albumin Ur <12.0 mg/L Comment: Interpretive Data No reference range established. Current interpretive data was last revised 2019. Creatinine Ur 67.2 mg/dL [facility] Comment: Interpretive Data No reference range established. Current interpretive data was last revised 2019. Albumin Creatinine Ratio, Ur <18 1 - 29 mg/g [facility] Urine 03/05/2024 2:34 PM CDT 03/05/2024 7:55 PM CDT us Cherrie Hernandez NP LAB URINE ORDERABLES Elizabeth marysol Result [facility] [id number] [facility] Department [place] [address] * (ABNORMAL) Lipid panel (08/03/2023 3:33 PM CDT) [facility] Signature Cholesterol 165 30 - 199 mg/dL [facility] CORONEL Comment: Interpretive Data Ages < or = 19 years Acceptable: <170 mg/dL Borderline high: 170-199 mg/dL High: >or= 200 mg/dL Ages > or = 20 years Desirable: <200 mg/dL Borderline high: 200-239 mg/dL High: >or= 240 mg/dL Literature References: 1. Expert Panel on Integrated Guidelines for Cardiovascular Health and Risk Reduction in Children and Adolescents. Pediatrics 2011;128:S213 2. NCEP Expert Panel. Circulation 2004;110:227 Current Interpretive Data was last revised on 2018. Triglycerides 179(H) <=149 mg/dL [facility] CORONEL Comment: Interpretive Data Ages < or = 9 years Acceptable: <75 mg/dL Borderline high: 75-99 mg/dL High: >or= 100 mg/dL Ages 10 to 20 years Acceptable: <90 mg/dL Borderline high: 90-129 mg/dL High: >or= 130 mg/dL Ages > or = 20 years Desirable: <150 mg/dL Borderline high: 150-199 mg/dL High: 200-499 mg/dL Very high: >or= 499 mg/dL Literature References: 1. Expert Panel on Integrated Guidelines for Cardiovascular Health and Risk Reduction in Children and Adolescents. Pediatrics 2011;128:S213 2. NCEP Expert Panel. Circulation 2004;110:227 Current Interpretive Data was last revised on 2018. HDL 36(L) >=40 mg/dL JAZMINE CORONEL Comment: Interpretive Data Ages < or = 19 years Acceptable: >45 mg/dL Borderline low: 40-45 mg/dL Low: <40 mg/dL Ages > or = 20 years Desirable: >or= 60 mg/dL Low: <40 mg/dL Literature References: 1. Expert Panel on Integrated Guidelines for Cardiovascular Health and Risk Reduction in Children and Adolescents. Pediatrics 2011;128:S213 2. NCEP Expert Panel. Circulation 2004;110:227 Current Interpretive Data was last revised on 2018. LDL, calculated 93 <=129 mg/dL JAZMINE BERNA Comment: Interpretive Data Ages < or = 19 years Acceptable: <110 mg/dL Borderline high: 110-129 mg/dL High: >or= 130 mg/dL Ages > or = 20 years Optimal: <100 mg/dL Near optimal: 100-129 mg/dL Borderline high: 130-159 mg/dL High: >160 mg/dL Literature References: 1. Expert Panel on Integrated Guidelines for Cardiovascular Health and Risk Reduction in Children and Adolescents. Pediatrics 2011;128:S213 2. NCEP Expert Panel. Circulation 2004;110:227 Current Interpretive Data was last revised on 2018. Non-HDL Cholesterol 129 mg/dL JAZMINE CORONEL Comment: Interpretive Data Ages < or = 19 years Acceptable: <120 mg/dL Borderline high: 120-144 mg/dL High: >145 mg/dL Ages > or = 20 years When triglycerides are >200 mg/dL, Non-HDL cholesterol is a secondary target of therapy with treatment goals that are 30 mg/dL greater than the LDL cholesterol target. Literature References: 1. Expert Panel on Integrated Guidelines for Cardiovascular Health and Risk Reduction in Children and Adolescents. Pediatrics 2011;128:S213 2. NCEP Expert Panel. Circulation 2004;110:227 Current Interpretive Data was last revised on 2018. Chol/HDL ratio 5 JAZMINE CORONEL Blood 08/03/2023 3:33 PM CDT 08/03/2023 8:44 PM CDT us Eileen Gentile MD LAB BLOOD ORDERABLES Final Resul t JAZMINE CORONEL [id number] Department of Laboratories [place], [place] [id number] from Last 3 Months or Most Recently Relevant to Health Maintenance Insurance MEDICARE Member Subscriber Plan / Payer (Ef fective 2004-Present) Name:Alec Funes Member ID:[id number] Relation to Subscriber:Self Name:Alec Funes Subscriber ID:[id number] Payer ID:[id number] Group ID:Not on file Type:MEDICARE TRADITIONAL Address: [address] [address] [place] [address] [employer] HUMANA CHOICE MEDICARE PPO HUMANA CHOICE MEDICARE PPO Advance Directives For more information, please contact: [phone] * Full Code (Latest Code Status on File) Date Activated Date Inactivated Comments 10/30/2020 6:00 PM 11/02/2020 8:33 PM 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
--- OUTSIDE RECORDS SUMMARY | 2025-03-12 14:00 | XMS_ITS | CONTINUITY OF CARE DOCUMENT ---
Author Name ada caballero Address Unknown Organization [facility] Address [address] [address] [facility] [address] [place] [address] Phone [phone] Care Team Providers Care Sail Repair Person Name Role Phone Jose E VAZQUEZ, Coby Unavailable [phone] Coby Dorantes MD Unavailable [phone] INSURANCE PROVIDERS Payer name Policy type / Coverage type [place] [employer] [place] MEDICARE PART B Medicare [id number]
--- OUTSIDE RECORDS SUMMARY | 2025-03-12 14:00 | XMS_ITS | Clinical Summary ---
Author Organization [facility] Virtual Care Address [address] [place] [id number] Phone Care Team Providers Care Sales Management Intern Name Role Phone Eduard Loya MD Unavailable [phone] Rafael Bazan MD Primary Care Provider [phone] Allergies No known active allergies Medications clopidogreL [...] skin every 7 days Pt assistance Lot [id number] Exp 06/05/2026 X 4 pens 4 Active Additional Information Patient taking differently:1 mg subcutaneous Every 7 days, Pt assistance MONDAYSLot [id number] 06/05/2026X 4 pens, Reported on 12/04/2024 pen needle, diabetic (Pen Needle) 31 gauge x /16 needleIndicatio ns:Type 2 diabetes mellitus with hyperglycemia, with long-term current use of insulin ([facility]) Use to inject insulin 4 times daily as directed 400 each 3 4 Active metoprolol XL (TOPROL-XL) 25 mg extended release tablet Take 1 tablet (25 mg total) by mouth daily 90 tablet 3 4 Active levothyroxine (SYNTHROID) 50 mcg tabletIndicatio ns:Hypothyroidi sm, unspecified type TAKE 1 TABLET IN CRIME SPECIALIST BEFORE BREAKFAST 90 tablet 3 4 Active NovoLOG 100 unit/mL (3 mL) pen for injectionIndica tions:Type 2 diabetes mellitus with hyperglycemia, with long-term current use of insulin ([facility]) Novolog 10 units before breakfast [...] hyperglycemia, with long-term current use of insulin ([facility]) Inject 20 Units under the skin every 12 (twelve) hours 45 mL 2 5 12/04/19 26 Active atorvastatin (LIPITOR) 40 mg tabletIndicatio ns:Type 2 diabetes mellitus with hyperglycemia, with long-term current use of insulin ([facility]) TAKE 1 TABLET EVERY DAY [...] 03/05/2024 Assessment & Plan (12/04/2024 1:20 PM COAT FELLER): Chronic problem. Managed by Dr Loya; seen [...] 01/17/2023 Assessment & Plan (12/04/2024 1:18 PM COAT FELLER): Chronic problem, currently taking levothyroxine 50mcg daily. [...] mychart. Aware to check results/results letter in Infor. Will contact by phone if needed. Assessment & Plan (11/23/2023 3:33 PM COAT FELLER): Chronic problem, currently taking levothyroxine 50mcg daily. [...] TFTs ordered today. Verified that he uses [employer]. Aware to check results/results letter in Infor. Will contact by phone if needed. Class [...] 08/2022 Assessment & Plan (12/04/2024 1:18 PM COAT FELLER): Chronic problem, not controlled on current Atorvastatin 40mg. Last lipid panel: 08/03/23 LDL=93, SH=187. Managed by manager paper Dr Mccray. Assessment & Plan (07/26/2024 10:29 AM CDT): Chronic problem, not controlled on current Atorvastatin 40mg. Last lipid panel: 08/03/23 LDL=93, WS=647. Managed by manager paper Dr Mccray. Assessment & Plan (03/05/2024 1:28 PM CDT): Chronic problem, not controlled on current Atorvastatin 40mg. Last lipid panel: 08/03/23 LDL=93, HO=523. Managed by manager paper Dr Mccray. Assessment & Plan (11/23/2023 3:35 PM COAT FELLER): Chronic problem, not controlled on current Atorvastatin 40mg. Last lipid panel: 08/03/23 LDL=93, [place]=790. Managed by manager paper Dr Mccray. Assessment & Plan (08/03/2023 4:11 PM CDT): Chronic, well controlled Update lipid profile Continue statin therapy Assessment & Plan (05/02/2023 1:08 PM CDT): Chronic problem, not controlled on current Atorvastatin 40mg. Last lipid panel: 06/02/22 RFJ=074, CP=574. Managed by manager paper Dr Mccray. Assessment & Plan (01/17/2023 1:53 PM CDT): Chronic problem, not controlled on current Atorvastatin 40mg. Last lipid panel: 06/02/22 MTH=700, UH=725. Managed by manager paper Dr Mccray. Assessment & Plan (10/06/2022 5:14 PM COAT FELLER): Chronic, well controlled Low fat Low cholesterol diet Exercise Continue statin therapy Assessment & Plan (06/02/2022 12:55 PM CDT): Chronic problem, not at goal. Restart atorvastatin. Rx sent. Coronary artery disease invo lving [place] coronary artery of [place] heart without angina pectoris 10/14/2021 Hx of CABG 10/14/2021 MARTIN (dyspnea on exertion) 10/30/2020 New onset atrial [...] insulin Assessment & Plan (12/04/2024 1:19 PM COAT FELLER): Chronic problem, near goal given age. A1c [...] risen from 7.8% 03/05/24 to now 7.9% Calder not accurate. Will call [facility] to get new reader sent out. Current [...] labs today . Verified that he uses Infor. Aware to check results/results letter in Infor. Will contact by phone if needed. UTD [...] infection. Assessment & Plan (11/23/2023 3:31 PM COAT FELLER): Chronic problem, not at goal. A1c has [...] DM eye exam by Dr Bazan at [facility] summer 2022. 2nd request letter sent [...] daily Ozempic 1 mg weekly Novolog via [employer] Dash BR 1.6 CR 5 CF 25 T 120 >150 AIT 4 hrs Discussed moving from insulin pump to insulin injections. Mrs Funes will talk to [employer] to see if any patient assistance available. Will also ask pharmacist what approximate costs will be. To scan Kian more often. Missing evening readings. DM eye exam by Dr Bazan at [facility] summer 2021. 2nd request letter sent [...] DM eye exam by Dr Bazan at [facility] summer 2021. Letter sent to get [...] infection. Assessment & Plan (10/06/2022 5:14 PM COAT FELLER): Hba1c was Lab Results Component Value Date [...] MA/Cr. Assessment & Plan (01/13/2022 3:31 PM COAT FELLER): Chronic problem, significantly improved since last visit. [...] issues. Assessment & Plan (11/18/2021 1:57 PM COAT FELLER): Hba1c was Lab Results Component Value Date [...] today and will start Farxiga as indicated. Encounters Date Type Department Care Team Description 01/01/2025 Telephone [facility] Medical Group Diabetes and Endocrinology [address] [place] [phone] Cherrie Hernandez, YADIEL Med Management (Ozempic and Farxiga) from Last 3 Months Surgical History Surgery Date Site/Laterality Comments CORONARY ARTERY BYPASS GRAFT CATARACT EXTRACTION 04/06/2018 - 05/05/2018 FRACTURE SURGERY 11/06/1973 - 11/05/1974 JOINT REPLACEMENT 11/06/1999 - 11/05/2000 SPINE SURGERY 11/06/1994 - 11/05/1995 Medical History Medical History Date Comments Coronary artery disease Diabetes mellitus (HCC) Hyperlipidemia Carotid stenosis Hyperthyroidism Cataract 04/2018 Heart disease 1997 Sleep apnea 1980 Dizziness of unknown cause Family History Medical History Relation Name Comments Diabetes Daughter sandra Cancer Father Delfin Cancer Mother Brandy Hypertension Mother Brandy Cancer Sister Ilana Diabetes Son Bruce Holder Relation Name Status Comments Daughter sandra Father Delfin Mother Brandy Sister Ilana Holder Social History Tobacco Use Types Packs/Day Years [...] on file Legal Sex Male 6:50 PM COAT FELLER Gender Identity Male 03/19/2024 11:10 AM CDT Sexual Orientation Straight 03/19/2024 11 :10 AM CDT Obstetrics History Last Filed Vital Signs Vital Sign Reading Time Taken Comments Blood Pressure 120/64 12/04/2024 12:58 PM COAT FELLER Pulse 75 12/04/2024 12:58 PM COAT FELLER Temperature 36.7 C (98 F) 11/02/2020 11:17 AM COAT FELLER Respiratory Rate 14 12/04/2024 12:58 PM COAT FELLER Oxygen Saturation 95% 10/07/2024 1:59 PM COAT FELLER Inhaled Oxygen Concentration - - Weight 96.6 kg (213 lb) 12/04/2024 12:58 PM COAT FELLER Height 182.9 cm (6' 0.01 ) 12/04/2024 12:[address] Body Mass Index 28.88 12/04/2024 12:58 PM COAT FELLER Plan of Treatment Health Maintenance Due Date Last Done Comments DTaP/Tdap/Td Vaccine (1 - Tdap) 1951 Hepatitis B Screening 1957 Zoster Vaccine (1 of 2) 1989 Well Visit 65+ 2004 Pneumococcal vaccine 65+ (2 of 2 - PPSV23) 09/01/2015 07/07/2015, 07/07/2014 Fall Risk Assessment 11/02/2021 11/02/2020 Depression Screening 10/06/2023 10/06/2022 Lipid Panel 08/03/2024 08/03/2023, 06/02/2022 Albumin Creatinine Ratio, Urine 03/05/2025 , 01/17/2023 Foot Exam 03/05/2025 03/05/2024, 01/04, 11/18/2021 Hemoglobin A1C 06/03/2025 12/04/2024, 092 , 03/05/2024, Additional history exists eGFR 06/10/2025 06/10/2024, 02/06, 01/17/2023, Additional history exists Influenza Vaccine (Season Ended) 2025 Dilated Eye Exam 09/03/2025 09/03/2024, 11/28/2023 Medical Devices Implanted Type Area Housekeeper Caregiver Device Identifier Shelf Expiration Date Model / Serial / Lot [employer] Roopa Synergy Xd 4mm 48mm System Coronary Stent Everolimus [id number] - S1 - [id number] Implanted:Qty: 1 on 06/10/2024 by Wesley Mosquera MD at [facility] Stent Right: Coronary Artery [employer] Roopa 04/30/2025 [id number] / 1 / [id number] [employer] Roopa Stent Drug Eluting S Megatron Mr 4.33r07vm [id number] - S1 - [id number] Implanted:Qty: 1 on 06/10/2024 by Wesley Mosquera MD at [facility] Stent Right: Coronary Artery [employer] Roopa 05/07/2025 [id number] / 1 / [id number] Procedures Procedure Name Priority Date/Time Associated Diagnosis Comments POCT HEMOGLOBIN A1C Routine 12/04/2024 1 :07 PM COAT FELLER Type 2 diabetes mellitus with hyperglycemia, with long-term current use of insulin (HCC) DIABETES EYE EXAM Routine 09/03/2024 8:01 AM CDT EGFR STAT 06/10/2024 12:25 PM CDT Coronary artery disease involving [place] coronary artery of [place] heart without angina pectoris ALBUMIN CREATININE RATIO, URINE Routine 03/05/2024 2:34 PM CDT Type 2 diabetes mellitus with hyperglycemia, with long-term current use of insulin (HCC) LIPID PANEL Routine 08/03/2023 3:33 PM CDT 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 (HCC) from Last 3 Months or Most Recently Relevant to Health Maintenance Results * (ABNORMAL) POCT hemoglobin A1c (12/04/2024 1:07 PM COAT FELLER) Hemoglobin A1C, POC 7.6 4.0 - 5.6 % Blood 12/04/2024 1:07 PM COAT FELLER Cherrie Hernandez NP POINT OF CARE TEST [...] MD LAB BLOOD ORDERABLES Final Resul t Performing Organization Address City/[facility] Co de Phone Number [facility] [address] [place] [address] * Albumin Creatinine Ratio, Urine (03/05/2024 2:34 PM CDT) Albumin Ur <12.0 mg/L Comment: Interpretive Data No reference range established. Current interpretive data was last revised 2019. Creatinine Ur 67.2 mg/dL [facility] Comment: Interpretive Data No reference range established. Current interpretive data was last revised 2019. Albumin Creatinine Ratio, Ur <18 1 - 29 mg/g JAZMINE Urine 03/05/2024 2:34 PM CDT 03/05/2024 7:55 PM CDT us Cherrie Hernandez NP LAB URINE ORDERABLES Elizabeth gregg Result Performing Organization Address City/[facility]/ZIP Co de Phone Number [facility] [address] Department [place] [address] * (ABNORMAL) Lipid panel (08/03/2023 3:33 PM CDT) Cholesterol 165 30 - 199 mg/dL [facility] Comment: Interpretive Data Ages < or = [...] on 2018. Triglycerides 179(H) <=149 mg/dL JAZMINE Comment: Interpretive Data Ages < or = [...] on 2018. HDL 36(L) >=40 mg/dL JAZMINE Comment: Interpretive Data Ages < or = [...] 2018. LDL, calculated 93 <=129 mg/dL JAZMINE Comment: Interpretive Data Ages < or = [...] LAB BLOOD ORDERABLES Final Resul t JAZMINE [address] Department [place] [address] from Last 3 Months or Most Recently Relevant to Health Maintenance Insurance MEDICARE [facility] Member Subscriber Plan / Payer (Ef fective 1993-Present) Name:Alec Funes Relation to Subscriber:Not on file Subscriber ID:Not on file Payer ID:[id number] Group ID:Not on file Type:COMMERCIAL Address: [facility] [address] HUMANA CHOICE MEDICARE PPO HUMANA CHOICE MEDICARE PPO Advance Directives For more information, please contact: [phone] * Full Code (Latest Code Status on File) Date Activated Date Inactivated Comments 10/30/2020 6:00 PM 11/02/2020 8:33 PM Care Teams Sales Management Intern Relationship Specialty Start Date End Date Rafael Bazan MD PCP - General Family Practice 09/05/23 Eduard Loya MD Referring Physician Nephrology 01/17/23
--- OUTSIDE RECORDS SUMMARY | 2025-03-12 14:00 | XMS_ITS | Data Portability ---
Author Organization [place] - [place] - Aashish mayraNELSON_[facility] [facility] Address [address] [place] [address] Care Team Providers Care Machine Try Out Setter Name Role Phone JOY BEST Primary Care Provider Assessment Encounter Date Assessment Date Assessment LastModified by Organization Details LastModified Time 02/16/2016 02/16/2016 #1: Coronary artery disease is status post bypass graft surgery: He has been experiencing breathlessness on mild physical exertion. His EKG is abnormal. He admits to have an echocardiogram and a nuclear stress test 2.: Diabetes mellitus: This is being managed by her primary care physician 3.: Hyperlipidemia: Lipid profile was not satisfactory Pravachol was changed for Lipitor recently 4.: Hypertension: Blood pressure is well controlled Not available 02/16/2016 17:59:11 03/16/2016 03/16/2016 #1: Coronary artery disease is status post bypass graft surgery: He has been experiencing breathlessness on mild physical exertion. His EKG is abnormal. He had a nuclear stress test which does not show any ischemia or scar. Left ventricular ejection fraction is normal on echocardiogram. His breathlessness is not cardiac 2.: Diabetes mellitus: This is being managed by her primary care physician 3.: Hyperlipidemia: Lipid profile was not satisfactory Pravachol was changed for Lipitor recently 4.: Hypertension: Blood pressure is well controlled Not available 03/16/2016 16:12:25 Plan of Treatment Reminders Order Date Submit Date Provider Last Modified By Organization Details Last Modified Time Details Appointments None recorded. Lab None recorded. Referral None recorded. Procedures None recorded. Surgeries None recorded. Imaging electrocard iogram, POC [address] In-Office Orders (For Internal Use Only), [address] , [place], [address], 6 18:10:22 echocardiog hugh with doppler and color flow, transthorac ic complete 2015 016 BLACK Not available 6 16:53:29 exercise stress test with myocardial perfusion scan 2015 016 BLACK Not available 6 17:20:10 Medication Orders None recorded. Patient TargetsNo targets recorded. Patient Instructions Encounter Date Encounter Id Patient Instructions Last Modified By Organization Details Last Modified Time 02/16/2016 [id number] type 2 diabetes: care instructions jmerriweather Not available 02/17/2016 11:12:25 shortness of breath: care instructions jmerriweather Not available 02/17/2016 11:12:25 03/16/2016 [id number] type 2 diabetes: care instructions hclinard Not available 03/17/2016 09:00:29 shortness of breath: care instructions hclinard Not available 03/17/2016 09:00:29 Reason for Referral None Reported. Results Created Date Observation Date Name Description Value Unit Range Abnormal Flag Note LastModifiedBy Organization Detail LastModifiedTime 02/29/20 16 02/26/2016 echoc ardio gram with doppl er and color flow, trans thora cic compl ete No observ ation record ed. Not Available 2015 16:11:00 02/29/20 16 02/26/2016 exerc ise stres s test with myoca rdial perfu raina scan No observ ation record ed. Not Available 2015 16:11:00 02/29/20 16 02/26/2016 exerc ise stres s test with myoca rdial perfu raina scan No observ ation record ed. Not Available 2015 16:11:00 Result Notes None recorded. Problems Name Problem SNOMED Code Status Onset Date Resolution Date Notes Provider Name and Address Organization Details Recorded Time Type 2 diabetes mellitus without complication 828745444 Active Henrry Worley MD [address] [place] [address], [place], [address], [facility] - [place] [facility] [place] 6 16:12:25 Hyperlipidemia [id number] Rebecca Worley MD [address] [facility], [place], [address] [place] [address] 0, [facility] - [place] [facility] [place] 6 16:12:25 Dyspnea [id number] Rebecca Worley MD [address] [facility] [address], [place], [address] [place] [address] 0, [facility] - [place] [facility] [place] 6 16:12:25 Coronary arterioscleros is [id number] Rebecca Worley MD [address] [facility] [address], [place], [address] [place] [address] 0, [facility] - [place] [facility] [place] 6 16:12:25 Problem Notes None recorded. Procedures Surgical History Date Name Laterality Status Provider Name and Address Organization Details Recorded Time 6 Echo completed Cecy Giovanna [facility] 02/29/2016 16:54:51 6 Nuclear Study completed Deborah Candida [facility] 02/29/2016 17:21:54 3 Nuclear Study completed Deborah Salazar [facility] 02/16/2016 10:14:59 1 Cardiac Cath completed Deborah Salazar [facility] 02/16/2016 10:14:59 0 Echo completed Deborah Salazar [facility] 02/16/2016 10:14:59 7 CABG completed Deborah Salazar [facility] 02/16/2016 10:15:52 Knee Surgery completed Deborah Salazar [facility] 02/16/2016 17:46:58 Gallbladder Surgery completed Deborah Salazar [facility] 02/16/2016 10:14:59 Imaging Results Imaging Date Name Status LastModified by Organization Details LastModified Time 02/26/2016 echocardiogram with doppler and color flow, transthoracic complete completed Information not available 03/16/2016 16:11:00 02/26/2016 exercise stress test with myocardial perfusion scan completed Information not available 03/16/2016 16:11:00 02/26/2016 exercise stress test with myocardial perfusion scan completed Information not available 03/16/2016 16:11:00 Procedure Notes None recorded. Medical Equipment None Reported. Allergies Allergen ID Allergen Name Allergen Category Reaction Reaction Severity Criticality Documentation Date Start Date Code Code System Note Provider Name and Address Organization Details Recorded Time 666127 Demerol medicatio n Not available Not available Not available 02/16/2016 24843 1 RxNorm (mepe ridin e) injec table solut inessa Salazar null, [place] - [place] [facility] [place] 6 10:12:16 Medications Name Sig Start Date Stop Date Status Note LastModified by Organization Details LastModified Time Novolin 70/30 U-100 Insulin 100 unit/mL subcutaneous suspension Inject 65 units twice a day by subcutaneou s route. active Not Available Not Available No t Available cetirizine 10 mg tablet Take 1 tablet every day by oral route. active Not Available Not Available No t Available aspirin 325 mg tablet Take 1 tablet every day by oral route. active Not Available Not Available No t Available glyburide 5 mg tablet Take 1 tablet every day by oral route. active Not Available Not Available No t Available glipizide 10 mg tablet Take 1 tablet every day by oral route. active Not Available Not Available No t Available Lantus U-100 Insulin 100 unit/mL subcutaneous solution Inject 70 units every day by subcutaneou s route at bedtime. active Not Available Not Available No t Available aspirin 81 mg tablet,delay ed release Take 1 tablet every day by oral route. active Not Available Not Available No t Available pravastatin 80 mg tablet Take 1 tablet every day by oral route. active Not Available Not Available No t Available tamsulosin 0.4 mg capsule Take 1 capsule every day by oral route. active Not Available Not Available No t Available Humalog U-100 Insulin 100 unit/mL subcutaneous cartridge use sliding scale active Not Available Not Available No t Available Cinnamon 500 mg capsule Take 1 capsule twice a day by oral route. active Not Available Not Available No t Available Glucosamine 1500 Complex take one twice daily active Not Available Not Available Not Available Fish Oil 360 mg-1,200 mg capsule,freddy yed release Take 1 capsule twice a day by oral route. active Not Available Not Available No t Available Invokana 300 mg tablet Take 0.5 tablets every day by oral route. active Not Available Not Available No t Available Vitals Date Recorded Body height Heart rate Oxygen saturation Oxygen saturation in Arterial blood by Pulse oximetry Body weight Body mass index (BMI) Systolic blood pressure Diastolic blood pressure Provider Name and Address Organization Details Last Updated DateTime 6 182.88 cm 84 /min 95 % 95 % 707258. 426771 g 34.5 kg/m2 110 mm[Hg] 60 mm[Hg] Deborah Wakefieldes [facility] 6 17:46:25 Date Recorded Body height Oxygen saturation Oxygen saturation in Arterial blood by Pulse oximetry Heart rate Body weight Body mass index (BMI) Systolic blood pressure Diastolic blood pressure Provider Name and Address Organization Details Last Updated DateTime 6 182.88 cm 95 % 95 % 94 /min 883393. 48332 g 34.3 kg/m2 130 mm[Hg] 62 mm[Hg] Henrry Worley MD [address] [place] [address], [address], [facility] 6 16:06:25 Social History Question Answer Notes LastModified by Organizat ion Details LastModified Time Tobacco Smoking Status Never Smoker Deborah Salazar [facility] 02/16/2016 17:46:52 Do You Have An Advance Directive? Yes Information not available 02/16/2016 What Is Your Level Of Alcohol Consumption? None Information not available 02/16/2016 What Is Your Level Of Caffeine Consumption? None Information not available 02/16/2016 What Type Of Diet Are You Following? REGULAR Information not available 02/16/2016 What Is Your Occupation? Retired Information not available 02/16/2016 Live Alone Or With Others? With Others Information not available 02/16/2016 Marital Status Informatio n not available 02/16/2016 How Many Children Do You Have? 3 Information not available 02/16/2016 Seat Belts Used Routinely No Information not available 02/16/2016 Do You Have Smoke And Carbon Monoxide Detectors In Your Home? Yes Information not available 02/16/2016 Are You Passively Exposed To Smoke? No Information not available 02/16/2016 General Stress Level Low Information not available 02/16/2016 Sex: Unknown Functional Status Question Answer Note LastModified by Organization D etails LastModified Time What is your exercise level? Moderate Information not available 02/16/2016 Mental Status None recorded. Family History Relationship Description Onset Age of this Age Resolved Age Notes LastModified by Organization Details LastModified Time Sister Coronary artery bypass graft Not available 09/2016 16:08:19 Sister Diabetes mellitus Not available 2015 16:08:19 Sister Heart disease Not available 2015 16:08:19 Sister Family history of malignant neoplasm Not available 2015 16:08:19 Sister Hypercholest erolemia Not available 2015 16:08:19 Father Malignant tumor of colon Not available 2015 16:08:19 Father Family history of malignant neoplasm Not available 2015 16:08:19 Mother Family history of malignant neoplasm Not available 2015 16:08:19 Medical History Condition Response asthma N COPD N acid reflux/GERD N diabetes mellitus Y sleep apnea Y high blood pressure N heart problems N hypothyroidism N coronary artery disease Y aortic aneurysm Y high cholesterol N cancer N blood clots N hyperlipidemia Y Past Encounters Encounter ID Performer Location Encounter Start Date Encounter Closed Date Diagnosis/Indication Diagnosis SNOMED-CT Code Diagnosis ICD10 Code Diagnosis Note [id number] Henrry Worley MD [facility] [address] [place] [address] 02/16/2016 16:53:14 02/16/2016 18:10:22 Coronary arteriosclerosis 28371964 I25.10 Dyspnea 607809195 R06.02 Hyperlipidemia 14131977 E78.5 Type 2 irwin betes mellitus without complication 145527411 E11.9 [id number] Henrry Worley MD [facility] [place] [address] [place] [address] 03/16/2016 16:04:41 07/22/2016 14:08:20 Coronary arteriosclerosis 79244140 I25.10 Dyspnea 748848406 R06.02 Hyperlipidemia 75873776 E78.5 Type 2 irwin betes mellitus without complication 618843265 E11.9 Health Concerns Section Related Observation LastModified by Organization Detai ls LastModified Time None Recorded Concern Status LastModified by Organization Details LastModified Time None Recorded Advance Directives Directive Y: Payers Insurance Date Sequence Insurance Name Policy Number Policy [place] Covered Member ID Over[place] Member ID Guarantor Name 07/22/2016 1 [place] Alec Funes [id number] Alec Funes 07/22/2016 2 [employer] (MEDICARE SUPPLEMENT) Alec Funes [id number] Alec Funes Notes Date Note Type Note Provider Name and Address Organization Details Recorded Time 02/16/2016 text/html This is a 75-yea r-old gentleman. He has coronary artery disease. He had coronary artery bypass graft surgery in the and . GERMAN was grafted to LAD and the diagonal. He had cardiac catheterization in 2010 which showed a patent sequential GERMAN graft to LAD and diagonal. He has continued on medical management. He had a nuclear rest stress test in 2012 which showed apical eschar that was no ischemia left ventricular ejection fraction was 54%. For the last few months he has been experiencing breathlessness on physical exertion. Denies of having edema, orthopnea or paroxysmal nocturnal dyspnea. Denies of chest pain Henrry Worley MD [address] [place] [address], [address], [facility] 02/16/2016 18:00:19 03/16/2016 text/html This is a 75-yea r-old gentleman. He has coronary artery disease. He had coronary artery bypass graft surgery in the 1996. GERMAN was grafted to LAD and the diagonal. He had cardiac catheterization in 2010 which showed a patent sequential GERMAN graft to LAD and diagonal. He has continued on medical management. He had a nuclear rest stress test in 2012 which showed apical scar that was no ischemia left ventricular ejection fraction was 54%. For the last few months he has been experiencing breathlessness on physical exertion. Denies of having edema, orthopnea or paroxysmal nocturnal dyspnea. Denies of chest pain.. He recently had a nuclear stress test. There is no ischemia or scar. Left ventricular ejection fraction is 47%. He had an echocardiogram. Left ventricular ejection fraction is normal. Henrry Worley MD [address] [place] [address], [place], [address], [facility] - [place] 03/16/2016 16:14:18
--- OUTSIDE RECORDS SUMMARY | 2025-03-12 14:00 | XMS_ITS | Continuity of Care Document ---
Author Organization [facility] Address [address] [place] [address] [address] [place] [address] Phone Care Team Providers Care Bi Manager Name Role Phone Lan Louise Unavailable Unavailable [...] Copied on Encounter Office/outpat ient Visit, [facility], [address] [place] [address] [address], [place], [place], [id number], [place] tel:[phone] [facility] No Information [address] [facility] , [address], [place], [address], [place]. tel:[phone] [facility], [address] [place] [address] [address], [place], [place], [address], [place] tel:[phone] [facility] No Information [address] , [address], [place], [address], [place]. tel:[phone] Office/outpat ient Visit, [facility], [address], [place], [place], [address], [place] tel:[phone] [facility] No Information [address] [facility] , [address], [place], [address], [place]. tel:[phone] Family History Family Member Type Diagnosis Age At Onset No Information Payers Payer name Insurance type Covered republican ID Authoriza tion(s) Medicare [facility] [id number] Physicians [facility] CI [id number] Social History Type Description Quantity Date Captured [...]
--- OUTSIDE RECORDS SUMMARY | 2025-03-12 14:00 | XMS_ITS | Encounter Summary ---
Author Organization [facility] Address [address] [place] [address] Care Team Providers Care Manager Emergency Department Name Role Phone Eduard Loya MD Unavailable [phone] Rafael Bazan MD Primary Care Provider [phone] Encounter Details Date Type Department Care Team (Late st Contact Info) Description 05/06/2024 Orders Only [facility] Health Information Management [address] [place] [address] Scanning, Provider Social History Tobacco Use Types Packs/Day Years Used Date Smoking Tobacco: Never Smokeless Tobacco: Current Chew Alcohol Use Standard Drinks/Week Comments Not Currently 0 (1 standard drink = 0.6 oz pur e alcohol) PHQ-2 Answer Date Recorded PHQ-2 Total Score (If total score is 3 or more points, staff should administer the PHQ-9) 0 10/06/2022 Personal Safety Answer Date Recorded Getting School Help Needed Not on file 11/01 Sex and Gender Information Value Date Recorded Sex Assigned at Not on file Legal Sex Male 6:50 PM [employer] Gender Identity Male 03/19/2024 11:10 AM CDT Sexual Orientation Straight 03/19/2024 11 :10 AM CDT documented as of this encounter Plan of Treatment Not on file documented as of this encounter Procedures Procedure Name Priority Date/Time Associated Diagnosis Comments CARDIOLOGY DOCUMENT SCAN 05/06/2024 documented in this encounter Results * Cardiology Document Scan (05/06/2024) Anatomical Region Laterality Modality Other us Provider Scanning CV CARDIAC SERVICES PROCEDURES Final Result documented in this encounter Visit Diagnoses Not on filedocumented in this encounter Care Teams Manager Emergency Department Relationship Specialty Start Date End Date Rafael Bazan MD PCP - General Family Practice 09/05/23 Eduard Loya MD Referring Physician Nephrology 01/17/23 documented as of this encounter
--- OUTSIDE RECORDS SUMMARY | 2025-03-12 14:01 | XMS_ITS | Data Portability ---
Author Organization [facility], Main Office Address [address] [place] [address] Assessment No assessment recorded. Plan of Treatment Reminders Order Date Submit Date Provider Last Modified By Organization Details Last Modified Time Details Appointments None record ed. Lab None record ed. Referral None record ed. Procedures None record ed. Surgeries None record ed. Imaging None record ed. Medication Orders None record ed. Patient TargetsNo targets recorded. Patient InstructionsNo instructions recorded. Reason for Referral None Reported. Problems Name Problem SNOMED Code Status Onset Date Resolution Date Notes Provider Name and Address Organization Details Recorded Time Impacted cerumen of bilateral ears 58195633360851 08 Active 2022 Isaac Herrera MD [address] [facility], [facility] [address], [place], [address] [facility] 14:20:07 Problem Notes None recorded. Procedures Surgical History Date Name Laterality Status Provider Name and Address Organization Details Recorded Time Cardiac Bypass completed Joy Ha CMA [facility] 02/01/2023 12:50:23 Knee Replacement completed Joy Ha CMA [facility] 02/01/2023 12:50:39 Gallbladder Surgery completed Joy Ha CMA [facility] 02/01/2023 12:51:02 Imaging Results None recorded. Procedure Notes None recorded. Medical Equipment None Reported. Allergies Allergen ID Allergen Name Allergen Category Reaction Reaction Severity Criticality Documentation Date Start Date Code Code System Note Provider Name and Address Organization Details Recorded Time 35282 Demerol medicatio n Not available Not available Not available 02/01/2023 98657 1 RxNorm Joy Ha CMA null, [facility] 12:49:08 Medications Name Sig Start Date Stop Date Status Note LastModified by Organization Details LastModified Time atorvastatin 40 mg tablet active Not Available Not Available Not Available midodrine 5 mg tablet active Not Available Not Available No t Available clopidogrel 75 mg tablet active Not Available Not Available Not Available amoxicillin 875 mg tablet TAKE 1 TABLET BY MOUTH TWICE DAILY UNTIL GONE 02/02 completed Not Available Not Available Not Available levothyroxin e 50 mcg tablet active Not Available Not Available Not Available Novolog U-100 Insulin aspart 100 unit/mL subcutaneous solution active Not Available Not Available Not Available fludrocortis one 0.1 mg tablet Take 1 tablet every day by oral route. active Not Available Not Available No t Available Farxiga active Not Available Not Avail able Not Available Ozempic active Not Available Not Avail able Not Available Omnipod Dash Pods (Gen 4) subcutaneous cartridge active Not Available Not Available No t Available aspirin 81 mg capsule Take 1 capsule every day by oral route. active Not Available Not Available No t Available Vitals Date Recorded Body weight Body mass index (BMI) Body height Body temperature Provider Name and Address Organization Details Last Updated DateTime 02/02/2023 667078.56 g 31.4 kg/m2 182.88 cm 97.8 [degF] Cecilia Jesus RN [place] [facility] 02/02/2023 14:07:27 Social History Question Answer Notes LastModified by Organizat ion Details LastModified Time Tobacco Smoking Status Never Smoker Joy Ha CMA null, [facility] 02/01/2023 12:50:05 What Is Your Level Of Alcohol Consumption? None [email or web address] Information not available 02/01/2023 Sex: Unknown Functional Status None recorded. Mental Status None recorded. Family History Nothing Reported. Medical History Condition Response MRSA N ALLERGIES/HAYFEVER N BACK INJECTIONS N LUNG DISEASE/DISORDER N INSOMNIA N HISTORY OF DRUG ABUSE N ESRD N RADIATION / CHEMOTHERAPY N COPD N HIGH CHOLESTEROL / HYPERLIPIDEMIA Y HYPERTHYROIDISM N PVD N BLOOD DISEASES N EAR OR HEARING PROBLEMS N HYPOTHYROIDISM N SHINGLES N DEPRESSION (INCLUDING POST ) N BACK / NECK PROBLEMS N HAVE YOU BEEN HOSPITALIZED OR SEEN IN [facility] ER IN THE PAST YEAR ? N FAILED BACK SYNDROME N STROKE/TIA N POLYCYSTIC OVARIES N OBESITY N ANEURYSM N HISTORY WITH COMPLICATIONS WITH ANESTHES IA ? N Do you have Advance directive? N USE OF BLOOD THINNERS Y NO SIGNIFICANT PAST MEDICAL HISTORY N DIABETES, TYPE N VON WILLIBRAND'S DISEASE N PARATHYROID DISEASE N ENT N SEASONAL ALLERGIES N HEARTBURN / REFLUX N POST LAMINECTOMY SYNDROME N HEPATITIS / LIVER DISEASE N SLEEP DISORDER N ARTERIAL INSUFFICIENCY N HEADACHES/MIGRAINES N SEIZURES/EPILEPSY N CHF N PACEMAKER N DIZZINESS N HEART DISEASE/HEART PROBLEMS Y AIDS/HIV N NEUROPSYCHOLOGICAL N HYPERTENSION N CANCER: SPECIFY N TOURETTE'S N BLOOD TRANSFUSION N ANESTHESIA COMPLICATIONS N ANEMIA/BLOOD DISORDER N CHRONIC EAR INFECTIONS N ATRIAL FIBRILLATION N AUTOIMMUNE DISEASE N TUBERCULOSIS N Past Encounters Encounter ID Performer Location Encounter Start Date Encounter Closed Date Diagnosis/Indication Diagnosis SNOMED-CT Code Diagnosis ICD10 Code Diagnosis Note [id number] Isaac Herrera MD [facility] [place] [address] [place] [address] 02/02/2023 13:53:55 02/02/2023 14:25:36 Impacted cerumen of bilateral ears 8350633056 004687 H61.23 Health Concerns Section Related Observation LastModified by Organization Detai ls LastModified Time None Recorded Concern Status LastModified by Organization Details LastModified Time None Recorded Advance Directives Directive None Recorded Payers Encounter Date Sequence Insurance Name Policy Number Policy [place] Covered Member ID [place] Member ID Guarantor Name 02/02/2023 1 [employer] (PPO) Alec Funes [id number] Alec Funes Notes Date Note Type Note Provider Name and Address Organization Details Recorded Time 02/02/2023 text/html cerumen impaction Isaac Herrera MD [address] [address], [place], [address], [facility] [email or web address] 02/02/2023 14:20:32
[2025-03-12 15:01] LABS: Hematocrit 46.9 % (42.0-52.0); Mean Corpuscular Hemoglobin 29.9 pg (26-34); Mean Corpuscular Volume 93.6 fl (80-100); Mean Platelet Volume 9.9 fl (7.4-10.4); Platelet Count Result 262 k/mm3 (150-375); Red Blood Count 5.01 M/mm3 (4.6-6.20); Red Cell Distribution Width 11.9 % (11.5-14.5); White Blood Count 9.7 K/mm3 (4.5-10.0)
[2025-03-12 15:11] LABS: Albumin Level 4.2 g/dL (3.5-5.1); Anion Gap 9 mmol/L (4-12); Blood Urea Nitrogen 19 mg/dL (9-20); Calcium 9.2 mg/dL (8.4-10.2); Carbon Dioxide 28 mmol/L (22-30); Chloride 102 mmol/L (98-107); Estimated Glomerular Filt Rate 52; Glucose 165 mg/dL (65-110); Phosphorus 4.1 mg/dL (2.5-4.5); Potassium 3.7 mmol/L (3.4-5.0); Sodium 139 mmol/L (137-145)
[2025-03-12 15:29] LABS: Parathyroid Intact 72.6 pg/mL (14.5-75.2)
[2025-03-12 15:31] LABS: Erythrocyte Sedimentation Rate 13 mm/hr (0-20)
[2025-03-12 15:57] LABS: Creatinine Urine 70.4 mg/dL; Total Protein Urine Random 17 mg/dL; Ur Ttl Prot Creatinine Ratio 0.24 mg/mg (0-0.20)
[2025-03-12 17:33] LABS: Rheumatoid Factor < 12.0 IU/ML (<12)
[2025-03-14 03:20] LABS: SM Antibody <1.0 NEG AI (<1.0 NEG); SM/RNP Antibody <1.0 NEG AI (<1.0 NEG); SS-A <1.0 NEG AI (<1.0 NEG); SS-B <1.0 NEG AI (<1.0 NEG)
[2025-03-14 14:43] LABS: Anti Glomerular Basement Memb <1.0 AI
[2025-03-15 09:43] LABS: ANCA Screen NEGATIVE (NEGATIVE)
== END 2025-03-12 13:50 | disposition home or self-care (01) ==
PROVIDERS: PCP Nurse Practitioner Family; Visit Provider Internal Medicine Nephrology
DX: R76.0 Raised antibody titer (principal); N18.32 Chronic kidney disease, stage 3b
CPT/HCPCS: 36415; 80069; 82570; 83520; 83970; 84156; 85027; 85652; 86036; 86038; 86039; 86225; 86235; 86430

== ENCOUNTER 2025-09-19 11:56 | Outpatient (CLI) | payer MEDICARE, SELFPAY ==
--- OUTSIDE RECORDS SUMMARY | 2009-09-21 07:30 | XMS_ITS | Continuity of Care Document ---
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 Name Role Phone Lan Louise Unavailable Unavailable Procedures Procedure Date Office/outpatient Visit, Est Dilated Retinal Exam W Interpretation No Dilated Macular Or Fundus Exam Findings Communicat Macular Or Fundus Exam Performed 2008 Communication Performed No Script Eye Exam & Treatment Optic Nerve Head Eval Dilated Retinal Exam W Interpretation Ap Dilated Macular Or Fundus Exam Findings Communicat Macular Or Fundus Exam Performed 2008 Communication Performed No Script Office/outpatient Visit, Est Advance Directives Directive Yes / No Effective Date File Name No Information Encounters Encounter Description Practice Location Reason(s) For Visit Diagnoses Date Provider Providers Copied on Encounter Office/outpat ient Visit, Est [facility], [address] [place] [address] [address], [place], [place], [id number], [place] tel:[phone] [facility] No Information [address] [facility] , [address], [place], [address], [place]. tel:[phone] [facility], [address] [place] [address] [address], [place], [place], [id number], [place] tel:[phone] [facility] No Information [address] , [address], [place], [address], [place]. tel:[phone] Office/outpat ient Visit, [facility], [address], [place], [place], [id number], [place] tel:[phone] SEC [facility] No Information [address] [facility] , [address], [place], [address], [place]. tel:[phone] Family History Family Member Type Diagnosis Age At Onset No Information Payers Payer name Insurance type Covered alliance party ID Authoriza tion(s) Medicare [facility] [id number] Physicians [facility] CI [id number] Social History Type Description Quantity Date Captured Comments Sex Male Smoking Status No Information Chief Complaint And Reason For Visit No Information Reason For Referral Reason For Referral No Information History Of Present Illness Encounter Date Complaint History Of Prese nt Illness No Information Functional Status Date Functional Assessmen t No Information Instructions Date Instruction Additional Infor mation No Information Assessments Type Assessment Date No Information Patient Care Teams Name Effective Dates (start - stop) Status Members No Information
--- OUTSIDE RECORDS SUMMARY | 2009-09-21 07:30 | XMS_ITS | Continuity of Care Document ---
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 [facility] , [address], [place], [address], [place]. tel:[phone] [facility], [address] [place] [address] [address], [place], [place], [id number], [place] tel:[phone] [facility] No Information [address] , [address], [place], [address], [place]. tel:[phone] Office/outpat ient Visit, [facility], [address], [place], [place], [id number], [place] tel:[phone] SEC [facility] No Information [address] [facility] , [address], [place], [address], [place]. tel:[phone] Family History Family Member Type Diagnosis Age At Onset No Information Payers Payer name Insurance type Covered alliance party ID Authoriza tion(s) Medicare [facility] [id number] Physicians [facility] CI [id number] Social History Type Description Quantity Date Captured [...]
--- OUTSIDE RECORDS SUMMARY | 2009-09-21 07:30 | XMS_ITS | Continuity of Care Document ---
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 [facility] , [address], [place], [address], [place]. tel:[phone] [facility], [address] [place] [address] [address], [place], [place], [address], [place] tel:[phone] [facility] No Information [address] , [address], [place], [address], [place]. tel:[phone] Office/outpat ient Visit, [facility] [place] [facility], [address], [place], [place], [address], [place] tel:[phone] SEC [facility] No Information [address] [facility] , [address], [place], [address], [place]. tel:[phone] Family History Family Member Type Diagnosis Age At Onset No Information Payers Payer name Insurance type Covered libertarian ID Authoriza tion(s) Medicare [facility] [id number] Physicians [facility] CI [id number] Social History Type Description Quantity Date Captured [...]
[2025-09-19 12:31] LABS: Hematocrit 44.9 % (42.0-52.0); Hemoglobin 14.6 g/dL (14.0-18.0); Mean Corpuscular HGB Conc 32.5 g/dl (32-36); Mean Corpuscular Hemoglobin 30.5 pg (26-34); Mean Corpuscular Volume 93.7 fl (80-100); Platelet Count Result 222 k/mm3 (150-375); Red Blood Count 4.79 M/mm3 (4.6-6.20); White Blood Count 9.0 K/mm3 (4.5-10.0)
[2025-09-19 12:48] LABS: Total Protein Urine Random 8 mg/dL; Ur Ttl Prot Creatinine Ratio 0.05 mg/mg (0-0.20)
[2025-09-19 12:51] LABS: Albumin Level 4.1 g/dL (3.5-5.1); Anion Gap 6 mmol/L (4-12); Blood Urea Nitrogen 16 mg/dL (9-20); Calcium 9.2 mg/dL (8.4-10.2); Carbon Dioxide 25 mmol/L (22-30); Chloride 105 mmol/L (98-107); Estimated Glomerular Filt Rate 52; Glucose 107 mg/dL (65-110); Potassium 4.4 mmol/L (3.4-5.0); Sodium 136 mmol/L (137-145)
[2025-09-19 13:03] LABS: Parathyroid Intact 65.6 pg/mL (14.5-75.2)
--- OUTSIDE RECORDS SUMMARY | 2025-09-19 16:46 | XMS_ITS | Clinical Summary ---
Author Organization [facility] Virtual Care Address [address] [place] [phone] Phone Care Team Providers Care Manager Emergency Department Name Role Phone Eduard Loya MD Unavailable [phone] Rafael Bazan MD Primary Care Provider [phone] Allergies No known active allergies Medications clopidogreL (PLAVIX) 75 mg tablet Take 1 tablet (75 mg total) by mouth daily Active aspirin 81 mg enteric coated tablet Take 1 tablet (81 mg total) by mouth daily Active cholecalcifero l (VITAMIN D-3) 25 mcg (1,000 unit) tablet Vitamin D3 once daily 1,000mg Active meclizine (ANTIVERT) 25 mg tablet Take 1 tablet (25 mg total) by mouth daily Active semaglutide (Ozempic) 1 mg/dose (4 mg/3 mL) pen injector injection Inject 1 mg under the skin every 7 days Pt assistance Lot [id number] Exp 06/05/2026 X 4 pens 02/13/20 24 Active Additional Information Patient taking differently:1 mg subcutaneous Every 7 days, Pt assistance MONDAYSLot [id number] 06/05/2026X 4 pens, Reported on 05/21/2025 pen needle, diabetic (Pen Needle) 31 gauge x /16 needleIndicati ons:Type 2 diabetes mellitus with hyperglycemia, with long-term current use of insulin (HCC) Use to inject insulin 4 times daily as directed 400 each 3 03/05/20 24 Active NovoLOG 100 unit/mL (3 mL) pen for injectionIndic ations:Type 2 diabetes mellitus with hyperglycemia, with long-term current use of insulin ([facility]) Novolog 10 units before breakfast & dinner. For blood sugars over 200: take 12 units. For blood sugars over 300: take 14 units 30 mL 08/23/20 24 Active fludrocortison e 0.1 mg tablet TAKE 1 TABLET EVERY DAY 90 tablet 2 09/18/20 24 Active Ozempic 1 mg/dose (2 mg/1.5 mL) pen injector injection Inject 1 mg under the skin once a week 09/18/20 24 Active traMADoL (ULTRAM) 50 mg tablet 11/11/19 25 Active insulin glargine 100 unit/mL (3 mL) pen for injectionIndic ations:Type 2 diabetes mellitus with hyperglycemia, with long-term current use of insulin ([facility]) Inject 20 Units under the skin every 12 (twelve) hours 45 mL 2 12/04/19 25 026 Active atorvastatin (LIPITOR) 40 mg tabletIndicati ons:Type 2 diabetes mellitus with hyperglycemia, with long-term current use of insulin ([facility]) TAKE 1 TABLET EVERY DAY 90 tablet 3 01/09/20 25 Active NovoLOG 100 unit/mL (3 mL) pen for injection Novolog 10 units before breakfast & dinner. For blood sugars over 200: take 12 units. For blood sugars over 300: take 14 units 02/12/20 25 Active Ozempic 1 mg/dose (4 mg/3 mL) pen injector injection Inject 1 mg under the skin once a week 02/12/20 25 Active pen needle, diabetic (BD Ultra-Fine Orig Pen Needle) 29 gauge x 1/2 needle Use to inject insulin 4 times daily as directed 400 each 3 04/02/20 25 Active levothyroxine (SYNTHROID) 50 mcg tabletIndicati ons:Hypothyroi dism, unspecified type TAKE 1 TABLET IN PARTS ROOM ASSISTANT BEFORE BREAKFAST 90 tablet 3 06/20/20 25 Active dapagliflozin propanediol (FARXIGA) 10 mg tabletIndicati ons:type 2 diabetes mellitus Take 1 tablet (10 mg total) by mouth daily 90 tablet 3 07/11/20 25 026 Active metoprolol XL (TOPROL-XL) 25 mg extended release tablet TAKE 1 TABLET EVERY DAY 90 tablet 09/01/20 25 Active metoprolol XL (TOPROL-XL) 25 mg extended release tablet TAKE 1 TABLET EVERY DAY 90 tablet 06/16/20 25 025 Discontinued Active Problems Problem Noted Date Diagnosed Date Status post insertion of drug eluting coronary a rtery stent 06/18/2024 Type 2 diabetes mellitus wit h stage 3a chronic kidney disease, with long-term current use of insulin 03/05/2024 Assessment & Plan (05/21/2025 1:08 PM CDT): Chronic problem. Managed by Dr Loya; seen every 6 mos. Currently on Farxiga 10mg daily. Nephropathy: On GINNY-I / ARB s : No. Last MA: 03/05/24 (18). Last creat/GFR: 06/10/24 GFR=55, CR=1.29. Will update labs. Does not mychart. Verified phone #/address to contact re: results. Assessment & Plan (12/04/2024 1:20 PM AUTOMATION OPERATOR): Chronic problem. Managed by Dr Loya; seen [...] stenosis 02/09/2023 Hypothyroidism 01/17/2023 Assessment & Plan (05/21/2025 1:53 PM CDT): Chronic problem, has not taking levothyroxine 50mcg in >3mos. Last TFTs checked 03/05/24 WNL. Will update labs. Does not mychart. Verified phone #/address to contact re: results. Assessment & Plan (12/04/2024 1:18 PM AUTOMATION OPERATOR): Chronic problem, currently taking levothyroxine 50mcg daily. [...] update TFTs today. Verified that he uses [employer] to check results/results letter in [employer]. Will contact by phone if needed. Assessment & Plan (11/23/2023 3:33 PM AUTOMATION OPERATOR): Chronic problem, currently taking levothyroxine 50mcg daily. [...] TFTs ordered today. Verified that he uses [employer] to check results/results letter in mychart. Will contact by phone if needed. Class 1 obesity due to exces s calories with serious comorbidity and body mass index (BMI) of 30.0 to 30.9 in adult 01/17/2023 Assessment & Plan (01/17/2023 1:56 PM CDT): Chronic problem. Discussed healthy diet and importance of regular physical activity (20- 30min/day, 150min/wk). 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 At today's appt: has not had atorvastatin in 3+ months. Last lipid panel: 08/03/23 LDL=93, GY=864. Managed by electronic imaging system operator Dr Mccray. Will update labs. Does not [employer]. Verified phone #/address to contact re: results. Assessment & Plan (12/04/2024 1:18 PM AUTOMATION OPERATOR): Chronic problem, not controlled on current Atorvastatin 40mg. Last lipid panel: 08/03/23 LDL=93, QA=299. Managed by electronic imaging system operator Dr Mccray. Assessment & Plan (07/26/2024 10:29 AM CDT): Chronic problem, not controlled on current Atorvastatin 40mg. Last lipid panel: 08/03/23 LDL=93, BL=950. Managed by electronic imaging system operator Dr Mccray. Assessment & Plan (03/05/2024 1:28 PM CDT): Chronic problem, not controlled on current Atorvastatin 40mg. Last lipid panel: 08/03/23 LDL=93, HN=363. Managed by electronic imaging system operator Dr Mccray. Assessment & Plan (11/23/2023 3:35 PM AUTOMATION OPERATOR): Chronic problem, not controlled on current Atorvastatin 40mg. Last lipid panel: 08/03/23 LDL=93, IV=997. Managed by electronic imaging system operator Dr Mccray. Assessment & Plan (08/03/2023 4:11 PM CDT): Chronic, well controlled Update lipid profile Continue statin therapy Assessment & Plan (05/02/2023 1:08 PM CDT): Chronic problem, not controlled on current Atorvastatin 40mg. Last lipid panel: 06/02/22 KIS=276, DH=506. Managed by electronic imaging system operator Dr Mccray. Assessment & Plan (01/17/2023 1:53 PM CDT): Chronic problem, not controlled on current Atorvastatin 40mg. Last lipid panel: 06/02/22 QJF=478, PY=414. Managed by electronic imaging system operator Dr Mccray. Assessment & Plan (10/06/2022 5:14 PM AUTOMATION OPERATOR): Chronic, well controlled Low fat Low cholesterol diet Exercise Continue statin therapy Assessment & Plan (06/02/2022 12:55 PM CDT): Chronic problem, not at goal. Restart atorvastatin. Rx sent. Coronary artery disease invo lving [place] coronary artery of [place] heart without angina pectoris 10/14/2021 Hx of [...] current use of insulin Assessment & Plan (05/21/2025 1:21 PM CDT): Chronic problem, near goal given age. A1c worsened from 7.6% 12/04/24 to now 8.0% Current medications: Farxiga 10mg daily (PAP) Ozempic 1 mg weekly (PAP) Lantus 20 units twice daily Novolog 10 units before breakfast & dinner For blood sugars over 200: take 12 units For blood sugars over 300: take 14 units Will update labs. Does not mychart. Verified phone #/address to contact re: results. UTD DM eye exam (09/03/24 +PDR wo [facility]) Discussed the need to strive for regular [...] skin breakdown and infection. Assessment & Plan (12/04/2024 1:19 PM AUTOMATION OPERATOR): Chronic problem, near goal given age. A1c [...] risen from 7.8% 03/05/24 to now 7.9% Martell not accurate. Will call [place] [facility] to get new reader sent out. Current medications: Farxiga 10mg daily (PAP) Ozempic 1 mg weekly (PAP) Lantus 20 units twice daily Novolog 10 units before breakfast & dinner For blood sugars over 200: take 12 units For blood sugars over 300: take 14 units UTD on labs. [facility] DM eye exam 11/28/23 Discussed the need [...] labs today . Verified that he uses [employer]. [facility]ware to check results/results letter in [employer]. Will contact by phone if needed. [facility] DM eye exam 11/28/23 Discussed the need [...] infection. Assessment & Plan (11/23/2023 3:31 PM AUTOMATION OPERATOR): Chronic problem, not at goal. A1c has [...] DM eye exam by Dr Bazan at [facility] summer 2022. 2nd request letter sent [...] Ozempic 1 mg weekly Novolog via [employer] Dash BR 1.6 CR 5 CF 25 T 120 >150 AIT 4 hrs Discussed moving from insulin pump to insulin injections. Mrs Funes will talk to [employer] to see if any patient assistance available. Will also ask pharmacist what approximate costs will be. To scan Kian more often. Missing evening readings. DM eye exam by Dr Bazan at [facility] summer 2021. 2nd request letter sent [...] DM eye exam by Dr Bazan at [facility] summer 2021. Letter sent to get [...] infection. Assessment & Plan (10/06/2022 5:14 PM AUTOMATION OPERATOR): Hba1c was Lab Results Component Value Date [...] MA/Cr. Assessment & Plan (01/13/2022 3:31 PM AUTOMATION OPERATOR): Chronic problem, significantly improved since last visit. [...] issues. Assessment & Plan (11/18/2021 1:57 PM AUTOMATION OPERATOR): Hba1c was Lab Results Component Value Date [...] Encounters Date Type Department Care Team Description 09/02/2025 Telephone [facility] Medical [facility] Diabetes and Endocrinology [address] [place] [phone] Cherrie Hernandez NP 09/01/2025 Telephone [facility] Diabetes and Endocrinology [address] [place] [phone] Cherrie Hernandez NP Patient Assistance (Novolog Flex Pen) 08/22/2025 Telephone [facility] Diabetes and Endocrinology [address] [place] [phone] Cherrie Hernandez NP PAP ([place] ) 07/11/2025 Telephone [facility] Diabetes and Endocrinology [address] [place] [phone] Cherrie Hernandez NP Farxiga 10 mg Refill Request from Last 3 Months Surgical History Surgery Date Site/Laterality Comments CORONARY ARTERY BYPASS GRAFT CATARACT EXTRACTION 04/06/2018 - 05/05/2018 FRACTURE SURGERY 11/06/1973 - 11/05/1974 JOINT REPLACEMENT 11/06/1999 - 11/05/2000 SPINE SURGERY 11/06/1994 - 11/05/1995 Medical History Medical History Date Comments Coronary artery disease Diabetes mellitus Hyperlipidemia Carotid stenosis Hyperthyroidism Cataract 04/2018 Heart disease 1997 Sleep apnea 1980 Dizziness of unknown cause Family History Medical History Relation Name Comments Diabetes Daughter sandra Cancer Father Delfin Cancer Mother Brandy Hypertension Mother Brandy Cancer Sister Ilana Diabetes Son Bruce Holder Relation Name Status Comments Daughter sandra Father Delfin Mother Brandy Sister Ilana Son Bruce Holder Social History Tobacco Use Types Packs/Day Years Used Date Smoking Tobacco: Never Smokeless Tobacco: Current Chew Tobacco Cessation:Ready to Q uit: Not Asked; Counseling Given: Not Answered Alcohol Use Standard Drinks/Week Comments Not Currently [...] on file Legal Sex Male 6:50 PM AUTOMATION OPERATOR Gender Identity Male 03/19/2024 11:10 AM CDT Sexual Orientation Straight 03/19/2024 11 :10 AM CDT Last Filed Vital Signs Vital Sign Reading Time Taken Comments Blood Pressure 100/60 05/21/2025 1:01 PM CDT Pulse 85 05/21/2025 1:01 PM CDT Temperature 36.7 C (98 F) 11/02/2020 11:17 AM AUTOMATION OPERATOR Respiratory Rate 16 05/21/2025 1:01 PM CDT Oxygen Saturation 95% 10/07/2024 1:59 PM AUTOMATION OPERATOR Inhaled Oxygen Concentration - - Weight 96.3 kg (212 lb 4.8 oz) 05/21/2025 1:01 P M CDT Height 182.9 cm (6') 05/21/2025 1:01 PM CDT Body Mass Index 28.79 05/21/2025 1:01 PM CDT Plan of Treatment Health Maintenance Due Date Last Done Comments DTaP/Tdap/Td Vaccine (1 - Tdap) 1950 Hepatitis B Screening 1957 Zoster Vaccine (1 of 2) 1989 Well Visit 65+ 2004 Pneumococcal vaccine 65+ (2 of 2 - PPSV23, PCV20, or PCV21) 09/01/2015 07/07/2015, 07/07/2014 Fall Risk Assessment 11/02/2021 11/02/2020 Depression Screening 10/06/2023 10/06/2022 Influenza Vaccine (#1) 2025 Dilated Eye Exam 09/03/2025 09/03/2024, 11/28/2023 Hemoglobin A1C 11/21/2025 05/21/2025, 11/07, 07/26/2024, Additional history exists Albumin Creatinine Ratio, Urine 05/21/2026 05/21/2025, 03/05/2024, 01/17/2023 Foot Exam 05/21/2026 05/21/2025, 02/06, 01/17/2023, Additional history exists Lipid Panel 05/21/2026 05/21/2025, 07/08, 06/02/2022 eGFR 05/21/2026 05/21/2025, 03/2024, 03/05/2024, Additional history exists Medical Devices Implanted Type Area Medical Bill Processor Device Identifier Shelf Expiration Date Model / Serial / Lot [employer] Roopa Synergy Xd 4mm 48mm System Coronary Stent Everolimus [id number] - S1 - [id number] Implanted:Qty: 1 on 06/10/2024 by Wesley Mosquera MD at [facility] Stent Right: Coronary Artery [employer] Roopa 04/30/2025 [id number] / / [id number] [employer] Roopa Stent Drug Eluting S Megatron Us Mr [id number] - S1 - [id number] Implanted:Qty: 1 on 06/10/2024 by Welsey Mosquera MD at [facility] Stent Right: Coronary Artery [employer] Roopa 05/07/2025 [id number] / 1 / [id number] Procedures Procedure Name Priority Date/Time Associated Diagnosis Comments EGFR Routine 05/21/2025 2:08 PM CDT Type 2 diabetes mellitus with hyperglycemia, with long-term current use of insulin (HCC) LIPID PANEL Routine 05/21/2025 2:08 PM CDT Type 2 diabetes mellitus with hyperglycemia, with long-term current use of insulin (HCC) 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 (HCC) ALBUMIN CREATININE RATIO, URINE Routine 05/21/2025 2:08 PM CDT Type 2 diabetes mellitus with hyperglycemia, with long-term current use of insulin (HCC) POCT HEMOGLOBIN A1C Routine 05/21/2025 1 :15 PM CDT Type 2 diabetes mellitus with hyperglycemia, with long-term current use of insulin ([facility]) DIABETES EYE EXAM Routine 09/03/2024 8:01 AM CDT from Last 3 Months or Most Recently Relevant to Health Maintenance Results * (ABNORMAL) eGFR (05/21/2025 2:08 PM CDT) eGFR 48(L) >=60 mL/min/1. 73 m2 Comment: Interpretive Data [...] interpretive data was last reviewed 2021. Blood 05/21/2025 2:08 PM CDT 05/21/2025 8:15 PM CDT us Cherrie Hernandez MOLD MAINTENANCE TECHNICIAN LAB BLOOD ORDERABLES Elizabeth l Result [facility] [id number] Department [place] [address] * Albumin Creatinine Ratio, Urine (05/21/2025 2:08 PM CDT) Albumin Ur 13.7 mg/L Comment: Interpretive Data No reference range established. Current interpretive data was last revised 2019. Creatinine Ur 67.2 mg/dL [facility] Comment: Interpretive Data No reference range established. Current interpretive data was last revised 2019. Albumin Creatinine Ratio, Ur 20 1 - 29 mg/g [facility] Urine 05/21/2025 2:08 PM CDT 05/21/2025 7:56 PM CDT us Cherrie Hernandez MOLD MAINTENANCE TECHNICIAN LAB URINE ORDERABLES Elizabeth l Result [facility] [address] Department [place] [address] * (ABNORMAL) Lipid panel (05/21/2025 2:08 PM CDT) Cholesterol 260(H) 30 - 199 mg/dL Comment: Interpretive Data Ages < or = [...] Data was last revised on 2018. Triglycerides 260(H) <=149 mg/dL [facility] Comment: Interpretive Data Ages < or = [...] Data was last revised on 2018. HDL 37(L) >=40 mg/dL [facility] Comment: Interpretive Data Ages [...] was last revised on 2018. LDL, calculated 173(H) <=129 mg/dL [facility] Comment: Interpretive Data Ages < or = 19 years Acceptable: <110 mg/dL Borderline high: 110-129 mg/dL High: >or= 130 mg/dL Ages > or = 20 years Optimal: <100 mg/dL Near optimal: 100-129 mg/dL Borderline high: 130-159 mg/dL High: >160 mg/dL Calculated using the Paddy LDL-C estimating equation. This equation was implemented on 2024. Prior to this date LDL-C was estimated using the Friedewald equation. Literature References: 1. Expert Panel on Integrated Guidelines for Cardiovascular Health and Risk Reduction in Children and Adolescents. Pediatrics 2011;128:S213 2. NCEP Expert Panel. Circulation 2004;110:227 3. Paddy M et al. LEBRON Cardiol. 2020 March 06;5(5):540-548. doi: 10.1001/jamacardio.2020.0013 Current Interpretive Data was last revised on 2024. Non-HDL Cholesterol 223 mg/dL [facility] Comment: Interpretive Data Ages [...] was last revised on 2018. Chol/HDL ratio 7 [facility] Blood 05/21/2025 2:08 PM CDT 05/21/2025 7:56 PM CDT us Cherrie Hernandez NP LAB BLOOD ORDERABLES Elizabeth l Result Performing Organization Address City/State/ZIP Co nv Phone Number [facility] [id number] Department [place] [address] * (ABNORMAL) POCT hemoglobin A1c (05/21/2025 1:15 PM CDT) Hemoglobin A1C, POC 8.0(A) 4.0 - 5.6 % Capillary blood 05/21/2025 1 :15 PM CDT us Cherrie Hernandez NP POINT OF CARE TEST ORDERA BLES Final Result * (ABNORMAL) DIABETES EYE EXAM (09/03/2024 8:01 AM CDT) Historical Provider HEALTH MAINTENANCE Final Result from Last 3 Months or Most Recently Relevant to Health Maintenance Insurance MEDICARE [facility]IANS [facility] [place] web care [employer] CHOICE MEDICARE PPO [employer] CHOICE MEDICARE PPO Advance Directives For more information, please contact: [phone] * Full Code (Latest Code Status on File) Date Activated Date Inactivated Comments 10/30/2020 6:00 PM 11/02/2020 8:33 PM Care Teams Manager Emergency Department Relationship Specialty Start Date End Date Rafael Bazan MD PCP - General Family Practice 09/05/23 Eduard Loya MD Referring Physician Nephrology 01/17/23
--- OUTSIDE RECORDS SUMMARY | 2025-09-19 16:47 | XMS_ITS | Clinical Summary ---
Author Organization [facility] Address [address] [place] [phone] Phone Care Team Providers Care Loft Worker Name Role Phone Doug Chappell MD Primary Care Provider [phone] Allergies Active Allergy Reactions Criticality Noted Date [...] Health Maintenance Due Date Last Done Comments Pneumococcal PPSV23/PCV13 65 + Years / Low and Medium Risk (2 of 3 - PCV20 or PCV21) 07/07/2016 07/07/2015 Influenza Vaccine (#1) 2025 Insurance Care Teams Loft Worker Relationship Specialty Start Date End Date Doug Chappell MD [address] [place] [address] PCP - General Family Medicine 02/07/22
== END 2025-09-19 11:57 | disposition home or self-care (01) ==
LOC: ANHLAB 11:57
PROVIDERS: PCP Nurse Practitioner Family; Visit Provider Internal Medicine Nephrology
DX: N18.32 Chronic kidney disease, stage 3b (principal)
CPT/HCPCS: 36415; 80069; 82570; 83970; 84156; 85027

== ENCOUNTER 2025-10-13 08:03 | Outpatient (CLI) | payer MEDICARE, SELFPAY ==
[2025-10-13 09:04] LABS: Alanine Aminotransferase 23 U/L (6-50); Albumin Level 4.3 g/dL (3.5-5.1); Alkaline Phosphatase 114 U/L (38-126); Anion Gap 5 mmol/L (4-12); Aspartate Amino Transferase 43 U/L (17-59); Bilirubin,Total 0.5 mg/dL (0.2-1.3); Blood Urea Nitrogen 21 mg/dL (9-20); Calcium 10.1 mg/dL (8.4-10.2); Carbon Dioxide 27 mmol/L (22-30); Chloride 104 mmol/L (98-107); Cholesterol 253 mg/dL (0-200); Estimated Glomerular Filt Rate 49; Glucose 95 mg/dL (65-110); HDL Direct 39 mg/dL; Potassium 4.5 mmol/L (3.4-5.0); Sodium 136 mmol/L (137-145); Total Protein 8.2 g/dL (6.3-8.2); Triglycerides 165 mg/dL (<150)
[2025-10-13 10:15] LABS: Vitamin B12 236.0 pg/mL (239-931)
[2025-10-13 11:23] LABS: MALB Creatinine Ratio 16.5 mg/g (0-30)
== END 2025-10-13 08:04 | disposition home or self-care (01) ==
LOC: ANHLAB 08:05
PROVIDERS: PCP Nurse Practitioner Family; Visit Provider Nurse Practitioner Family
DX: E11.22 Type 2 diabetes mellitus with diabetic chronic kidney disease (principal); I13.0 Hypertensive heart and chronic kidney disease with heart failure and stage 1 through stage 4 chronic kidney disease, or unspecified chronic kidney disease; E55.9 Vitamin D deficiency, unspecified; N18.32 Chronic kidney disease, stage 3b; I50.20 Unspecified systolic (congestive) heart failure; E78.5 Hyperlipidemia, unspecified; I49.8 Other specified cardiac arrhythmias; E03.9 Hypothyroidism, unspecified; E21.1 Secondary hyperparathyroidism, not elsewhere classified; R42 Dizziness and giddiness; N40.0 Benign prostatic hyperplasia without lower urinary tract symptoms; M54.50 Low back pain, unspecified; G89.29 Other chronic pain; G43.709 Chronic migraine without aura, not intractable, without status migrainosus; F03.90 Unspecified dementia, unspecified severity, without behavioral disturbance, psychotic disturbance, mood disturbance, and anxiety; G25.81 Restless legs syndrome; G47.33 Obstructive sleep apnea (adult) (pediatric); E53.8 Deficiency of other specified B group vitamins; I25.10 Atherosclerotic heart disease of native coronary artery without angina pectoris; Z95.1 Presence of aortocoronary bypass graft; Z68.27 Body mass index [BMI] 27.0-27.9, adult; Z79.4 Long term (current) use of insulin; Z86.73 Personal history of transient ischemic attack (TIA), and cerebral infarction without residual deficits
CPT/HCPCS: 36415; 80053; 80061; 82043; 82306; 82607; 82746

== ENCOUNTER 2025-11-04 12:33 | Outpatient (CLI) | payer MEDICARE, SELFPAY ==
--- NOTE | ~2025-11-04 | XR_ITS ---
EXAMINATION: XR chest 2V 11/04/2025 12:52 INDICATION: Cough PROCEDURE: 2 view chest COMPARISON: 06/15/2021 FINDINGS: The lungs are clear. The cardiomediastinal silhouette is within normal limits. There are no pleural effusions. There is no pneumothorax suspected. Status post median sternotomy for CABG. IMPRESSION: 1: NO ACUTE CARDIOPULMONARY DISEASE. Reviewed, dictated and finalized at location [facility]
--- OUTSIDE RECORDS SUMMARY | 2025-11-04 12:49 | XMS_ITS | Clinical Summary ---
Author Organization [facility] Virtual Care Address [address] [place] [phone] Phone Care Team Providers Care Concrete Buster Operator Name Role Phone Eduard Loya MD Unavailable [phone] Rafael Bazan MD Primary Care Provider [phone] Allergies No known active allergies Medications clopidogreL [...] skin every 7 days Pt assistance Lot [id number] 06/05/2026 X 4 pens 02/13/20 24 Active Additional Information Patient taking differently:1 mg subcutaneous Every 7 days, Pt assistance MONDAYSLot [id number] 06/05/2026X 4 pens, Reported on 05/21/2025 pen needle, diabetic (Pen Needle) 31 gauge x 16 needleIndicati ons:Type 2 diabetes mellitus with hyperglycemia, with long-term current use of insulin (HCC) Use to inject insulin 4 times daily as directed 400 each 3 03/05/20 24 Active NovoLOG 100 unit/mL (3 mL) pen for injectionIndic ations:Type 2 diabetes mellitus with hyperglycemia, with long-term current use of insulin ([facility]) Novolog 10 units before breakfast & dinner. [...] hyperglycemia, with long-term current use of insulin ([facility]) Inject 20 Units under the skin every 12 (twelve) hours 45 mL 2 12/04/19 25 026 Active NovoLOG 100 unit/mL (3 mL) pen [...] dism, unspecified type TAKE 1 TABLET IN [employer] BEFORE BREAKFAST 90 tablet 3 06/20/20 25 Active dapagliflozin propanediol (FARXIGA) 10 mg tabletIndicati ons:type 2 diabetes mellitus Take 1 tablet (10 mg total) by mouth daily 90 tablet 3 07/11/20 25 026 Active metoprolol XL (TOPROL-XL) 25 mg extended release tablet TAKE 1 TABLET EVERY DAY 90 tablet 09/01/20 25 Active atorvastatin (LIPITOR) 40 mg tabletIndicati ons:Type 2 diabetes mellitus with hyperglycemia, with long-term current use of insulin (HCC) TAKE 1 TABLET EVERY DAY 90 tablet 3 10/29/20 25 Active atorvastatin (LIPITOR) 40 mg tabletIndicati ons:Type 2 diabetes mellitus with hyperglycemia, with long-term current use of insulin (HCC) TAKE 1 TABLET EVERY DAY 90 tablet 3 01/09/20 25 025 Discontinued Active Problems Problem Noted [...] results. Assessment & Plan (12/04/2024 1:20 PM AQUARIST): Chronic problem. Managed by Dr Loya; seen [...] results. Assessment & Plan (12/04/2024 1:18 PM AQUARIST): Chronic problem, currently taking levothyroxine 50mcg daily. [...] update TFTs today. Verified that he uses [facility]. Aware to check results/results letter in [facility]. Will contact by phone if needed. Assessment & Plan (11/23/2023 3:33 PM AQUARIST): Chronic problem, currently taking levothyroxine 50mcg daily. [...] TFTs ordered today. Verified that he uses [facility]. Aware to check results/results letter in [facility]. Will contact by phone if needed. Class [...] 3+ months. Last lipid panel: 08/03/23 LDL=93, PD=693. Managed by rail operations controller Dr Mccray. Will update labs. Does not [facility]. Verified phone #/address to contact re: results. Assessment & Plan (12/04/2024 1:18 PM AQUARIST): Chronic problem, not controlled on current Atorvastatin 40mg. Last lipid panel: 08/03/23 LDL=93, XV=291. Managed by rail operations controller Dr Mccray. Assessment & Plan (07/26/2024 10:29 AM CDT): Chronic problem, not controlled on current Atorvastatin 40mg. Last lipid panel: 08/03/23 LDL=93, QY=318. Managed by rail operations controller Dr Mccray. Assessment & Plan (03/05/2024 1:28 PM CDT): Chronic problem, not controlled on current Atorvastatin 40mg. Last lipid panel: 08/03/23 LDL=93, LU=451. Managed by rail operations controller Dr Mccray. Assessment & Plan (11/23/2023 3:35 PM AQUARIST): Chronic problem, not controlled on current Atorvastatin 40mg. Last lipid panel: 08/03/23 LDL=93, WX=764. Managed by rail operations controller Dr Mccray. Assessment & Plan (08/03/2023 4:11 PM CDT): Chronic, well controlled Update lipid profile Continue statin therapy Assessment & Plan (05/02/2023 1:08 PM CDT): Chronic problem, not controlled on current Atorvastatin 40mg. Last lipid panel: 06/02/22 BLF=600, DA=550. Managed by rail operations controller Dr Mccray. Assessment & Plan (01/17/2023 1:53 PM CDT): Chronic problem, not controlled on current Atorvastatin 40mg. Last lipid panel: 06/02/22 ZRC=347, VM=038. Managed by rail operations controller Dr Mccray. Assessment & Plan (10/06/2022 5:14 PM AQUARIST): Chronic, well controlled Low fat Low cholesterol diet Exercise Continue statin therapy Assessment & Plan (06/02/2022 12:55 PM CDT): Chronic problem, not at goal. Restart atorvastatin. Rx sent. Coronary artery disease invo lving [place] coronary artery of [place] heart without angina pectoris 10/14/2021 Hx of [...] UTD DM eye exam (09/03/24 +PDR wo DME [facility]) Discussed the need to strive [...] infection. Assessment & Plan (12/04/2024 1:19 PM AQUARIST): Chronic problem, near goal given age. A1c [...] risen from 7.8% 03/05/24 to now 7.9% [place] not accurate. Will call [place] [facility] to get new reader sent out. Current [...] labs today . Verified that he uses [facility]. Aware to check results/results letter in [facility]. Will contact by phone if needed. UTD [...] infection. Assessment & Plan (11/23/2023 3:31 PM AQUARIST): Chronic problem, not at goal. A1c has [...] DM eye exam by Dr Bazan at [facility] summer 2022. 2nd request letter sent [...] insulin injections. Mrs Funes will talk to [employer] to see if any patient assistance available. Will also ask pharmacist what approximate costs will be. To scan Kian more often. Missing evening readings. DM eye exam by Dr Bazan at [facility] summer 2021. 2nd request letter sent [...] DM eye exam by Dr Bazan at [facility] summer 2021. Letter sent to get [...] infection. Assessment & Plan (10/06/2022 5:14 PM AQUARIST): Hba1c was Lab Results Component Value Date [...] MA/Cr. Assessment & Plan (01/13/2022 3:31 PM AQUARIST): Chronic problem, significantly improved since last visit. [...] issues. Assessment & Plan (11/18/2021 1:57 PM AQUARIST): Hba1c was Lab Results Component Value Date [...] Type Department Care Team Description 09/02/2025 Telephone [facility] Medical [facility] Diabetes and Endocrinology [address] [place] [phone] Cherrie Hernandez NP 09/01/2025 Telephone [facility] Diabetes and Endocrinology [address] [place] [phone] Cherrie Hernandez NP Patient Assistance (Novolog Flex Pen) 08/22/2025 Telephone [facility] Diabetes and Endocrinology [address] [place] [phone] Cherrie Hernandez NP PAP ([place] ) from Last 3 Months Surgical History Surgery [...] Mother Brandy Hypertension Mother Brandy Cancer Sister Ilnaa Diabetes Robert Holder Relation Name Status Comments Daughter sandra [...] on file Legal Sex Male 6:50 PM AQUARIST Gender Identity Male 03/19/2024 11:10 AM CDT Sexual Orientation Straight 03/19/2024 11 :10 AM CDT Last Filed Vital Signs Vital Sign Reading Time Taken Comments Blood Pressure 100/60 05/21/2025 1:01 PM CDT Pulse 85 05/21/2025 1:01 PM CDT Temperature 36.7 C (98 F) 11/02/2020 11:17 AM AQUARIST Respiratory Rate 16 05/21/2025 1:01 PM CDT Oxygen Saturation 95% 10/07/2024 1:59 PM AQUARIST Inhaled Oxygen Concentration - - Weight 96.3 [...] 05/21/2025, 03/05/2024, 01/17/2023 Foot Exam 05/21/2026 05/21/2025, /, 01/17/2023, Additional history exists Lipid Panel 05/21/2026 05/21/2025, 09/2 06/2023, 06/02/2022 eGFR 05/21/2026 05/21/2025, 08/0 03/2024, 03/05/2024, Additional history exists Medical Devices Implanted Type Area Chemical Laboratory Chief Device Identifier Shelf Expiration Date Model / Serial / Lot [employer] Roopa Synergy Xd 4mm 48mm System Coronary Stent Everolimus [id number] - S1 - [id number] Implanted:Qty: 1 on 06/10/2024 by Wesley Mosquera MD at [facility] Stent Right: Coronary Artery [employer] Roopa 04/30/2025 [id number] / / [id number] [employer] Ro[employer] Stent Drug Eluting S Megatron Us Mr [id number] - S1 - [id number] Implanted:Qty: 1 on 06/10/2024 by Wesley Mosquera MD at [facility] Stent Right: Coronary Artery [employer] Roopa 05/07/2025 [id number] / / [id number] Procedures Procedure Name Priority Date/Time Associated Diagnosis [...] with long-term current use of insulin (HCC) HM DIABETES EYE EXAM Routine 09/03/2024 8:01 AM [...] 05/21/2025 8:15 PM CDT us Cherrie Hernandez NP LAB BLOOD ORDERABLES Elizabeth l Result [facility] [id number] Department of Laboratories [place], [place] [id number] * Albumin Creatinine Ratio, Urine (05/21/2025 2:08 PM CDT) Albumin Ur 13.7 mg/L Comment: Interpretive Data No reference range established. Current interpretive data was last revised 2019. Creatinine Ur 67.2 mg/dL [facility] CORONEL Comment: Interpretive Data No reference range established. Current interpretive data was last revised 2019. Albumin Creatinine Ratio, Ur 20 1 - 29 mg/g [facility] CORONEL Urine 05/21/2025 2:08 PM CDT 05/21/2025 7:56 PM CDT us Cherrie Hernandez NP LAB URINE ORDERABLES Elizabeth gregg Result J[facility]INE [address] [address] Department [place] [address] * (ABNORMAL) Lipid panel (05/21/2025 2:08 PM [...] revised on 2018. Triglycerides 260(H) <=149 mg/dL [facility] CORONEL Comment: Interpretive Data [...] on 2018. HDL 37(L) >=40 mg/dL [facility] CORONEL Comment: Interpretive Data [...] NCEP Expert Panel. Circulation 2004;110:227 3. Paddy Gibson et al. LEBRON Cardiol. 2019March 06;5(5):540-548. doi: 10.1001/[email or web address].2020.0013 Current Interpretive Data was [...] revised on 2018. Chol/HDL ratio 7 [facility] CORONEL Blood 05/21/2025 2:08 PM CDT 05/21/2025 7:56 PM CDT us Cherrie Hernandez NP LAB BLOOD ORDERABLES Elizabeth l Result Performing Organization Address [place] [address] [address] Department [place] [address] * (ABNORMAL) POCT hemoglobin A1c (05/21/2025 1:15 PM CDT) Hemoglobin A1C, POC 8.0(A) 4.0 - 5.6 % Capillary blood 05/21/2025 1 :15 PM CDT Cherrie Hernandez NP POINT OF CARE TEST ORDERA BLES Final Result * (ABNORMAL) DIABETES EYE EXAM (09/03/2024 8:01 AM CDT) Historical Provider HEALTH MAINTENANCE Final Result from Last 3 Months or Most Recently Relevant to Health Maintenance Insurance [employer] Advance Directives For more information, please contact: [phone] * Full Code (Latest Code Status on File) Date Activated Date Inactivated Comments 10/30/2020 6:00 PM 11/02/2020 8:33 PM Care Teams Concrete Buster Operator Relationship Specialty Start Date End Date Rafael Bazan MD PCP - General Family Practice 09/05/23 Eduard Loya MD Referring Physician Nephrology 01/17/23
--- OUTSIDE RECORDS SUMMARY | 2025-11-04 12:49 | XMS_ITS | Clinical Summary ---
Author Organization [facility] Address [address] [place] [phone] Phone Care Team Providers Care [employer] Art Teacher Name Role Phone Doug Chappell MD Primary Care Provider [phone] Allergies Active Allergy Reactions Criticality Noted Date [...] Influenza Vaccine (#1) 2025 Insurance Care Teams [employer] Art [employer] Relationship Specialty Start Date End Date Doug Chappell MD [address] [place] [address] PCP - General Family Medicine 02/07/22
== END 2025-11-04 12:34 | disposition home or self-care (01) ==
PROVIDERS: PCP Nurse Practitioner Family; Visit Provider Nurse Practitioner Family
DX: R05.9 Cough, unspecified (principal)
CPT/HCPCS: 71046